=== PATIENT | female | born 1955 | race Two or more races ===

== ENCOUNTER 2017-12-23 17:34 | Inpatient (IN) | payer OTHER ==
[~2017-12-23] VITALS: Ht 152.4 cm; Wt 111.4 kg
[~2017-12-23 17:34] MED LIST: ASPI-621 PO; ATEN25TA PO; CARI350T PO; CITA40TA5 PO; HYDR-3241 PO; HYDR-3343 PO; LISI-170 PO; LISI2.5T PO; MECL25TA2 PO; METO-99 PO; SIMV40TA PO; TEMA22.5 PO; TEMA30CA6 PO; TRAM50TA2 PO
[2017-12-23] MEDS ORDERED: SODIUM CHLORIDE FLUSH 10ML SYR IVF ONE (18:30)
[2017-12-23] MEDS ORDERED: ASPIRIN 81 MG TABLET CHEW PO ONE (18:30)
[2017-12-23 18:52] LABS: INTERNATIONAL NORMALIZED RATIO 1.04 (0.93-1.1); PROTHROMBIN TIME 10.7 Seconds (9.6-11.5)
[2017-12-23 18:59] LABS: ALANINE AMINOTRANSFERASE 13 U/L (12-78); ALBUMIN 3.3 g/dL (3.4-5.0); ANION GAP 13 mmol/L (5-15); CALCIUM 8.6 mg/dL (8.5-10.1); CHLORIDE 101 mmol/L (98-107)
[2017-12-23 19:04] LABS: ALKALINE PHOSPHATASE 56 U/L (45-117); BILIRUBIN,TOTAL 0.2 mg/dL (0.2-1.0); CREATININE 1.55 mg/dL (0.55-1.02); TOTAL PROTEIN 7.7 g/dL (6.4-8.2); TROPONIN I 0.117 ng/mL (0.000-0.045)
[2017-12-23 19:16] LABS: MEAN CORPUSCULAR HEMOGLOBIN 27.5 pg (27.0-34.8); MEAN CORPUSCULAR HGB CONC 32.8 g/dL (32.4-35.8); MEAN CORPUSCULAR VOLUME 83.8 fL (80-100); MEAN PLATELET VOLUME 7.9 fL (7.4-10.4); PLATELET COUNT 469 x10^3/uL (130-400); RED CELL DISTRIBUTION WIDTH 17.1 % (9.6-15.2)
[2017-12-23 19:17] LABS: HEMOGRAM NOTE RECHECKED
[2017-12-23 19:29] LABS: MD YES
[2017-12-23] MEDS ORDERED: POTASSIUM CHLORIDE 20 MEQ TAB.ER.PRT PO ONE (19:30)
[2017-12-23] MEDS ORDERED: POTASSIUM CHLORIDE 40 MEQ in SODIUM CHLORIDE 0.9% 500 ML IV ONE (19:30)
[2017-12-23 19:33] LABS: LYMPH#(MANUAL) 2.32 x10^3/uL (1-3.4); LYMPHS% (MANUAL) 18 % (22-44); MONOS#(MANUAL) 1.03 x10^3/uL (0.3-2.7); MONOS% (MANUAL) 8 % (2-9); NRBC % (MANUAL) 1 % (0-1); SEG#(MANUAL) 9.55 x10^3/uL (1.8-6.8); SEGS% (MANUAL) 74 % (42-75)
[2017-12-23 19:34] LABS: ANISOCYTOSIS 2+; HYPOCHROMIA 1+; MICROCYTOSIS 1+; POLYCHROMASIA 1+
[2017-12-23 19:35] LABS: <PLATELET ESTIMATE> INCREASED; <PLT MORPHOLOGY> NORMAL PLT MORPH
[2017-12-23] MEDS ORDERED: POTASSIUM CHLORIDE 20 MEQ TAB.ER.PRT ONE (20:09)
[2017-12-23] MEDS ORDERED: ASPIRIN 81 MG TABLET CHEW ONE (20:09)
[2017-12-23] MEDS ORDERED: NITROGLYCERIN OINT 2%, 1GM TP ONE ×2 (20:12→20:30)
[2017-12-23] MEDS ORDERED: HEPARIN 5,000 UNITS/ML, 1ML IV ONE (20:30)
[2017-12-23] MEDS ORDERED: HEPARIN 5,000 UNITS/ML, 1ML IV PRN (20:30)
[2017-12-23] MEDS ORDERED: HEPARIN 25,000 UNITS/500ML PMX 500 ML IV PRN (20:30)
[2017-12-23] MEDS ORDERED: HYDR-3245 PO (20:46)
[2017-12-23] MEDS ORDERED: MECLIZINE CHEWABLE 25 MG TAB PO PRN (21:30)
[2017-12-23] MEDS ORDERED: ONDANSETRON 2MG/ML, 2ML IVPush PRN (21:30)
[2017-12-23] MEDS ORDERED: ONDANSETRON ODT 4 MG PO PRN (21:30)
[2017-12-23] MEDS ORDERED: hydrALAzine 20 MG/ML, 1ML IVPush PRN (21:30)
[2017-12-23] MEDS ORDERED: ACETAMINOPHEN 325 MG TABLET PO PRN (21:30)
[2017-12-23 21:37] VITALS: BP 128/72
[2017-12-23] MEDS: HYDROcodone/APAP 10/325 MG TABLET PO PRN (21:46)
[2017-12-23 22:07] VITALS: BP 128/78
[2017-12-23 22:38] VITALS: BP 123/69
[2017-12-23 23:21] VITALS: BP 122/72
[2017-12-23 23:38] LABS: TROPONIN I 0.608 ng/mL (0.000-0.045)
[2017-12-24] VITALS (9 sets, daily range): BP systolic 125–156; BP diastolic 72–89
[2017-12-24] MEDS ORDERED: MORPHINE SULFATE 4 MG/ML, 1ML ONE ×4 (00:20→09:40)
[2017-12-24] MEDS: morphine SULFATE 10 MG/ML, 1ML IVPush PRN ×5 (00:25→13:10)
[2017-12-24] MEDS: SODIUM CHLORIDE 0.9% 1,000 ML IV SCH ×2 (01:34→10:02)
[2017-12-24 05:43] LABS: MEAN CORPUSCULAR HEMOGLOBIN 28.6 pg (27.0-34.8); MEAN CORPUSCULAR HGB CONC 33.1 g/dL (32.4-35.8); MEAN CORPUSCULAR VOLUME 86.7 fL (80-100); MEAN PLATELET VOLUME 7.7 fL (7.4-10.4); PLATELET COUNT 389 x10^3/uL (130-400); RED CELL DISTRIBUTION WIDTH 16.1 % (9.6-15.2)
[2017-12-24 05:48] LABS: ALBUMIN 3.1 g/dL (3.4-5.0); CHLORIDE 106 mmol/L (98-107)
[2017-12-24 05:54] LABS: ALANINE AMINOTRANSFERASE 12 U/L (12-78); ALKALINE PHOSPHATASE 53 U/L (45-117); ANION GAP 11 mmol/L (5-15); BILIRUBIN,TOTAL 0.7 mg/dL (0.2-1.0); CHOL/HDL RATIO 3.1; CHOLESTEROL, TOTAL 141 mg/dL (140-239); CREATININE 0.87 mg/dL (0.55-1.02); HDL CHOL % 33 % (28-40); HDL CHOLESTEROL (DIRECT) 46 mg/dL (40-60); LDL CHOLESTEROL,CALCULATED 78 mg/dL (54-169); LDL/HDL RATIO 1.7 (0.5-3.0); TOTAL PROTEIN 7.4 g/dL (6.4-8.2); TRIGLYCERIDES 83 mg/dL (50-200); TROPONIN I 0.533 ng/mL (0.000-0.045); VLDL CHOLESTEROL 17 mg/dL (0-25)
[2017-12-24 05:58] LABS: BASOPHILS # (AUTO) 0.03 x10^3/uL (0-0.1); BASOPHILS % (AUTO) 0 % (0-1); EOSINOPHILS % (AUTO) 0 % (1-7); LYMPHOCYTES # (AUTO) 1.83 x10^3/uL (1-3.4); LYMPHOCYTES % (AUTO) 17 % (22-44); MD SCAN; MONOCYTES # (AUTO) 0.84 x10^3/uL (0.2-0.8); MONOCYTES % (AUTO) 8 % (2-9); NEUTROPHILS # (AUTO) 7.89 x10^3/uL (1.8-6.8); NEUTROPHILS % (AUTO) 75 % (42-75)
[2017-12-24] MEDS: CITALOPRAM 20 MG TABLET PO SCH (07:35)
[2017-12-24] MEDS: HYDROcodone/APAP 10/325 MG TABLET PO PRN ×3 (07:35→22:03)
[2017-12-24] MEDS: POLYETHYLENE GLYCOL 17 GM PACKET PO SCH (07:36)
[2017-12-24] MEDS ORDERED: PNEUMOCOCCAL 23 VACCINE IM-VACC ONE (10:30)
[2017-12-24] MEDS ORDERED: TRAM50TA2 PO (12:35)
[2017-12-24] MEDS ORDERED: TIZA4TAB PO (16:23)
[2017-12-24] MEDS ORDERED: POTASSIUM CHLORIDE 20 MEQ TAB.ER.PRT ONE (17:41)
[2017-12-24] MEDS: POTASSIUM CHLORIDE 20 MEQ TAB.ER.PRT PO SCH (17:46)
[2017-12-24] MEDS ORDERED: TIZANIDINE 4MG TABLET PO PRN (18:00)
[2017-12-24] MEDS: LISINOPRIL 20 MG TABLET PO SCH (22:03)
[2017-12-24] MEDS: SIMVASTATIN 40 MG TABLET PO SCH (22:04)
[2017-12-25] VITALS (9 sets, daily range): BP systolic 123–166; BP diastolic 79–98
[2017-12-25] MEDS: TEMAZEPAM 15 MG CAPSULE PO PRN ×2 (00:03→21:17)
[2017-12-25] MEDS: HYDROcodone/APAP 10/325 MG TABLET PO PRN ×3 (05:22→18:13)
[2017-12-25 05:44] LABS: BASOPHILS # (AUTO) 0.04 x10^3/uL (0-0.1); BASOPHILS % (AUTO) 0 % (0-1); EOSINOPHILS # (AUTO) 0.02 x10^3/uL (0-0.4); EOSINOPHILS % (AUTO) 0 % (1-7); LYMPHOCYTES # (AUTO) 1.86 x10^3/uL (1-3.4); LYMPHOCYTES % (AUTO) 17 % (22-44); MD NO; MEAN CORPUSCULAR HEMOGLOBIN 28.5 pg (27.0-34.8); MEAN CORPUSCULAR VOLUME 86.2 fL (80-100); MEAN PLATELET VOLUME 7.7 fL (7.4-10.4); MONOCYTES # (AUTO) 1.03 x10^3/uL (0.2-0.8); MONOCYTES % (AUTO) 10 % (2-9); NEUTROPHILS # (AUTO) 7.96 x10^3/uL (1.8-6.8); NEUTROPHILS % (AUTO) 73 % (42-75); PLATELET COUNT 359 x10^3/uL (130-400); RED BLOOD COUNT 2.58 x10^6/uL (3.82-5.3); RED CELL DISTRIBUTION WIDTH 17.3 % (9.6-15.2)
[2017-12-25 05:56] LABS: ANION GAP 6 mmol/L (5-15); CALCIUM 8.4 mg/dL (8.5-10.1); CHLORIDE 107 mmol/L (98-107)
[2017-12-25 06:04] LABS: CREATININE 0.66 mg/dL (0.55-1.02); TROPONIN I 0.178 ng/mL (0.000-0.045)
[2017-12-25] MEDS: POLYETHYLENE GLYCOL 17 GM PACKET PO SCH (08:24)
[2017-12-25] MEDS: CITALOPRAM 20 MG TABLET PO SCH (08:25)
[2017-12-25] MEDS: POTASSIUM CHLORIDE 20 MEQ TAB.ER.PRT PO SCH (08:25)
[2017-12-25] MEDS: LISINOPRIL 20 MG TABLET PO SCH ×2 (08:25→21:12)
[2017-12-25 10:33] LABS: OCCULT BLOOD POSITIVE (NEGATIVE)
[2017-12-25] MEDS ORDERED: SENNA/DOCUSATE TABLET PO SCH (14:00)
[2017-12-25] MEDS: SIMVASTATIN 40 MG TABLET PO SCH (21:11)
[2017-12-25] MEDS: SENNA/DOCUSATE TABLET PO SCH (21:11)
[2017-12-26] MEDS: HYDROcodone/APAP 10/325 MG TABLET PO PRN ×4 (00:49→20:20)
[2017-12-26 00:51] VITALS: BP 152/81
[2017-12-26 05:24] LABS: BASOPHILS # (AUTO) 0.04 x10^3/uL (0-0.1); BASOPHILS % (AUTO) 0 % (0-1); EOSINOPHILS # (AUTO) 0.13 x10^3/uL (0-0.4); EOSINOPHILS % (AUTO) 1 % (1-7); LYMPHOCYTES # (AUTO) 2.65 x10^3/uL (1-3.4); LYMPHOCYTES % (AUTO) 24 % (22-44); MD NO; MEAN CORPUSCULAR HEMOGLOBIN 29.5 pg (27.0-34.8); MEAN CORPUSCULAR HGB CONC 33.4 g/dL (32.4-35.8); MEAN CORPUSCULAR VOLUME 88.3 fL (80-100); MEAN PLATELET VOLUME 7.9 fL (7.4-10.4); MONOCYTES # (AUTO) 0.98 x10^3/uL (0.2-0.8); MONOCYTES % (AUTO) 9 % (2-9); NEUTROPHILS # (AUTO) 7.45 x10^3/uL (1.8-6.8); NEUTROPHILS % (AUTO) 66 % (42-75); PLATELET COUNT 334 x10^3/uL (130-400); RED BLOOD COUNT 3.07 x10^6/uL (3.82-5.3); RED CELL DISTRIBUTION WIDTH 17.1 % (9.6-15.2)
[2017-12-26 06:24] VITALS: BP 135/84
[2017-12-26] MEDS: SENNA/DOCUSATE TABLET PO SCH ×2 (08:36→20:20)
[2017-12-26] MEDS: LISINOPRIL 20 MG TABLET PO SCH ×2 (08:36→20:20)
[2017-12-26] MEDS: CITALOPRAM 20 MG TABLET PO SCH (08:36)
[2017-12-26] MEDS: POLYETHYLENE GLYCOL 17 GM PACKET PO SCH (08:36)
[2017-12-26] MEDS ORDERED: SENNA/DOCUSATE TABLET PO SCH (09:00)
[2017-12-26 12:26] VITALS: BP 146/84
[2017-12-26] MEDS ORDERED: MOVIPREP POWDER 1 PREP KIT PO ONE (18:00)
[2017-12-26 19:41] VITALS: BP 120/65
[2017-12-26] MEDS: SIMVASTATIN 40 MG TABLET PO SCH (20:20)
[2017-12-27] VITALS (10 sets, daily range): BP systolic 116–152; BP diastolic 74–91
[2017-12-27] MEDS ORDERED: MOVIPREP POWDER 1 PREP KIT PO ONE (03:00)
[2017-12-27] MEDS: HYDROcodone/APAP 10/325 MG TABLET PO PRN ×4 (03:10→22:23)
[2017-12-27 05:35] LABS: ANION GAP 8 mmol/L (5-15); CALCIUM 8.7 mg/dL (8.5-10.1); CHLORIDE 109 mmol/L (98-107); CREATININE 0.58 mg/dL (0.55-1.02)
[2017-12-27 06:00] LABS: BASOPHILS # (AUTO) 0.02 x10^3/uL (0-0.1); BASOPHILS % (AUTO) 0 % (0-1); EOSINOPHILS # (AUTO) 0.07 x10^3/uL (0-0.4); EOSINOPHILS % (AUTO) 1 % (1-7); LYMPHOCYTES # (AUTO) 1.31 x10^3/uL (1-3.4); LYMPHOCYTES % (AUTO) 15 % (22-44); MD NO; MEAN CORPUSCULAR HEMOGLOBIN 28.9 pg (27.0-34.8); MEAN CORPUSCULAR VOLUME 87.8 fL (80-100); MEAN PLATELET VOLUME 7.8 fL (7.4-10.4); MONOCYTES # (AUTO) 0.74 x10^3/uL (0.2-0.8); MONOCYTES % (AUTO) 8 % (2-9); NEUTROPHILS # (AUTO) 6.67 x10^3/uL (1.8-6.8); NEUTROPHILS % (AUTO) 76 % (42-75); PLATELET COUNT 339 x10^3/uL (130-400); RED BLOOD COUNT 3.15 x10^6/uL (3.82-5.3); RED CELL DISTRIBUTION WIDTH 16.6 % (9.6-15.2)
[2017-12-27] MEDS: SENNA/DOCUSATE TABLET PO SCH ×2 (08:03→20:20)
[2017-12-27] MEDS: LISINOPRIL 20 MG TABLET PO SCH ×3 (08:03→15:11)
[2017-12-27] MEDS ORDERED: PROPOFOL 10 MG/ML, 20ML ONE ×3 (09:15→09:40)
[2017-12-27] MEDS ORDERED: PROMETHAZINE 25 MG/ML, 1ML IV PRN (10:00)
[2017-12-27] MEDS ORDERED: PROMETHAZINE 12.5 MG SUPP PR PRN (10:00)
[2017-12-27] MEDS ORDERED: ONDANSETRON 2MG/ML, 2ML IVPush PRN (10:00)
[2017-12-27] MEDS ORDERED: OXYcodone 5 MG/5 ML ORAL.SOL UDC PO PRN (10:00)
[2017-12-27] MEDS ORDERED: MIDAZOLAM 1 MG/ML, 2ML IV PRN (10:00)
[2017-12-27] MEDS ORDERED: FENTANYL PF 100 MCG/2ML IV PRN (10:00)
[2017-12-27] MEDS ORDERED: LORazepam 2 MG/ML, 1ML IVPush PRN (10:00)
[2017-12-27] MEDS ORDERED: morphine SULFATE 10 MG/ML, 1ML IV PRN (10:00)
[2017-12-27] MEDS: CITALOPRAM 20 MG TABLET PO SCH (10:41)
[2017-12-27] MEDS: POLYETHYLENE GLYCOL 17 GM PACKET PO SCH (20:20)
[2017-12-27] MEDS: SIMVASTATIN 40 MG TABLET PO SCH (20:29)
[2017-12-27] MEDS: TEMAZEPAM 15 MG CAPSULE PO PRN (22:23)
[2017-12-28 01:08] VITALS: BP 130/78
[2017-12-28] MEDS: HYDROcodone/APAP 10/325 MG TABLET PO PRN ×2 (05:33→11:22)
[2017-12-28 05:41] LABS: BASOPHILS # (AUTO) 0.03 x10^3/uL (0-0.1); BASOPHILS % (AUTO) 0 % (0-1); EOSINOPHILS # (AUTO) 0.13 x10^3/uL (0-0.4); EOSINOPHILS % (AUTO) 2 % (1-7); LYMPHOCYTES # (AUTO) 1.68 x10^3/uL (1-3.4); LYMPHOCYTES % (AUTO) 20 % (22-44); MD NO; MEAN CORPUSCULAR HEMOGLOBIN 28.7 pg (27.0-34.8); MEAN CORPUSCULAR VOLUME 86.9 fL (80-100); MEAN PLATELET VOLUME 7.6 fL (7.4-10.4); MONOCYTES # (AUTO) 0.72 x10^3/uL (0.2-0.8); MONOCYTES % (AUTO) 9 % (2-9); NEUTROPHILS # (AUTO) 5.68 x10^3/uL (1.8-6.8); NEUTROPHILS % (AUTO) 69 % (42-75); PLATELET COUNT 343 x10^3/uL (130-400); RED BLOOD COUNT 2.99 x10^6/uL (3.82-5.3); RED CELL DISTRIBUTION WIDTH 17.4 % (9.6-15.2)
[2017-12-28 06:28] VITALS: BP 137/79
[2017-12-28] MEDS: SENNA/DOCUSATE TABLET PO SCH (08:28)
[2017-12-28] MEDS: POLYETHYLENE GLYCOL 17 GM PACKET PO SCH (08:28)
[2017-12-28] MEDS: CITALOPRAM 20 MG TABLET PO SCH (08:37)
[2017-12-28] MEDS: LISINOPRIL 20 MG TABLET PO SCH (08:37)
[2017-12-28 12:19] LABS: BASOPHILS # (AUTO) 0.04 x10^3/uL (0-0.1); BASOPHILS % (AUTO) 1 % (0-1); EOSINOPHILS # (AUTO) 0.08 x10^3/uL (0-0.4); EOSINOPHILS % (AUTO) 1 % (1-7); LYMPHOCYTES # (AUTO) 1.11 x10^3/uL (1-3.4); LYMPHOCYTES % (AUTO) 16 % (22-44); MD NO; MEAN CORPUSCULAR HGB CONC 32.3 g/dL (32.4-35.8); MEAN CORPUSCULAR VOLUME 86.8 fL (80-100); MEAN PLATELET VOLUME 7.7 fL (7.4-10.4); MONOCYTES # (AUTO) 0.57 x10^3/uL (0.2-0.8); MONOCYTES % (AUTO) 8 % (2-9); NEUTROPHILS # (AUTO) 5.07 x10^3/uL (1.8-6.8); NEUTROPHILS % (AUTO) 74 % (42-75); PLATELET COUNT 331 x10^3/uL (130-400); RED BLOOD COUNT 3.15 x10^6/uL (3.82-5.3)
[2017-12-28 13:56] VITALS: BP 125/80
== END 2017-12-28 16:51 | disposition home or self-care (01) | DRG 393 ==
LOC: ED 20:41 → EDIP 21:01 → 5SO 21:20
PROVIDERS: ADMIT Hospitalist; ATTEND Family Medicine
PROC: 30233N1 Transfusion of Nonautologous Red Blood Cells into Peripheral Vein, Percutaneous Approach (ICD-10-PCS; principal; 2017-12-23)
PROC: 0DBN8ZX Excision of Sigmoid Colon, Via Natural or Artificial Opening Endoscopic, Diagnostic (ICD-10-PCS; 2017-12-27)
PROC: 0DB98ZX Excision of Duodenum, Via Natural or Artificial Opening Endoscopic, Diagnostic (ICD-10-PCS; 2017-12-27)
DX: K63.5 Polyp of colon (principal); N17.0 Acute kidney failure with tubular necrosis; I24.8 Other forms of acute ischemic heart disease; D62 Acute posthemorrhagic anemia; Z68.42 Body mass index [BMI] 45.0-49.9, adult; I35.0 Nonrheumatic aortic (valve) stenosis; E66.9 Obesity, unspecified; E78.5 Hyperlipidemia, unspecified; I10 Essential (primary) hypertension; I35.2 Nonrheumatic aortic (valve) stenosis with insufficiency; K59.00 Constipation, unspecified; E87.6 Hypokalemia; D50.9 Iron deficiency anemia, unspecified; M54.9 Dorsalgia, unspecified; G89.29 Other chronic pain; F41.9 Anxiety disorder, unspecified; F32.9 Major depressive disorder, single episode, unspecified; K57.90 Diverticulosis of intestine, part unspecified, without perforation or abscess without bleeding; R19.5 Other fecal abnormalities; Z90.49 Acquired absence of other specified parts of digestive tract; Z88.2 Allergy status to sulfonamides; Z87.891 Personal history of nicotine dependence
CPT/HCPCS: 36415; 36430; 71045; 80048; 80053; 80061; 82272; 83735; 84100; 84484; 85014; 85018; 85025; 85520; 85610; 86850; 86900; 86923; 88305; 90732; 93005; 93306; J2704; J2270; J7030; P9016

== ENCOUNTER → 2018-04-08 | Outpatient (CLI) | payer OTHER ==
[~2018-04-08] MED LIST changes: +HYDR-3245 PO; +TIZA4TAB PO
== END | disposition home or self-care (01) ==
LOC: CFH 09:17
PROVIDERS: ATTEND Physician Assistant
DX: I08.3 Combined rheumatic disorders of mitral, aortic and tricuspid valves (principal); I10 Essential (primary) hypertension; E78.5 Hyperlipidemia, unspecified; F41.9 Anxiety disorder, unspecified
CPT/HCPCS: 93306

== ENCOUNTER 2018-06-03 08:12 | Day surgery (SDC) | payer OTHER ==
[2018-06-01 11:34] LABS: ALANINE AMINOTRANSFERASE 16 U/L (12-78); ALBUMIN 3.5 g/dL (3.4-5.0); ANION GAP 7 mmol/L (5-15); CALCIUM 9.2 mg/dL (8.5-10.1); CHLORIDE 105 mmol/L (98-107); CREATININE 0.75 mg/dL (0.55-1.02)
[2018-06-01 11:36] LABS: ALKALINE PHOSPHATASE 81 U/L (45-117); BILIRUBIN,TOTAL 0.3 mg/dL (0.2-1.0); TOTAL PROTEIN 8.5 g/dL (6.4-8.2)
[~2018-06-03] VITALS: Ht 154.9 cm; Wt 110.9 kg
[~2018-06-03 08:12] MED LIST changes: +CHOL100011 PO; +FERR-46 PO; +FURO20TA3 PO; +HYDR-3307 PO; +LISI1TAB5 PO; +TIZA4CAP PO; +TRAZ-137 PO
[2018-06-03 08:27] VITALS: BP 165/71
[2018-06-03] MEDS ORDERED: VERAPAMIL 2.5 MG/ML, 2ML ONE (09:17)
[2018-06-03] MEDS ORDERED: MIDAZOLAM 1 MG/ML, 2ML ONE (09:17)
[2018-06-03] MEDS ORDERED: FENTANYL PF 100 MCG/2ML ONE (09:17)
[2018-06-03] MEDS ORDERED: HEPARIN 1,000 UNITS/ML, 10ML ONE (09:18)
[2018-06-03] MEDS ORDERED: HYDROcodone/APAP 5/325 TABLET PO PRN (10:00)
== END 2018-06-03 12:01 | disposition home or self-care (01) ==
LOC: CACL 08:12
PROVIDERS: ATTEND Internal Medicine Cardiovascular Disease
DX: I25.10 Atherosclerotic heart disease of native coronary artery without angina pectoris (principal); I10 Essential (primary) hypertension; D64.9 Anemia, unspecified; Z79.899 Other long term (current) drug therapy; Z88.1 Allergy status to other antibiotic agents; Z88.8 Allergy status to other drugs, medicaments and biological substances
CPT/HCPCS: 36415; 80053; 93458; 99156; C1769; C1894; J1644; J2250; J3010; Q9967

== ENCOUNTER 2018-07-02 04:52 | Inpatient (IN) | payer OTHER ==
[2018-07-01 13:01] LABS: MICROSCOPIC AUTO
[2018-07-01 13:13] LABS: BASOPHILS # (AUTO) 0.03 x10^3/uL (0-0.1); BASOPHILS % (AUTO) 0 % (0-1); EOSINOPHILS # (AUTO) 0.17 x10^3/uL (0-0.4); EOSINOPHILS % (AUTO) 2 % (1-7); LYMPHOCYTES # (AUTO) 1.71 x10^3/uL (1-3.4); LYMPHOCYTES % (AUTO) 16 % (22-44); MD NO; MEAN CORPUSCULAR HEMOGLOBIN 28.1 pg (27.0-34.8); MEAN CORPUSCULAR VOLUME 85.2 fL (80-100); MEAN PLATELET VOLUME 8.1 fL (7.4-10.4); MONOCYTES # (AUTO) 0.44 x10^3/uL (0.2-0.8); MONOCYTES % (AUTO) 4 % (2-9); NEUTROPHILS % (AUTO) 78 % (42-75); PLATELET COUNT 293 x10^3/uL (130-400); RED BLOOD COUNT 4.36 x10^6/uL (3.82-5.3); RED CELL DISTRIBUTION WIDTH 19.1 % (9.6-15.2)
[2018-07-01 13:20] LABS: INTERNATIONAL NORMALIZED RATIO 1.01 (0.93-1.1); PROTHROMBIN TIME 10.4 Seconds (9.6-11.5)
[2018-07-01 13:22] LABS: ALANINE AMINOTRANSFERASE 31 U/L (12-78); ALBUMIN 3.4 g/dL (3.4-5.0); ANION GAP 4 mmol/L (5-15); CALCIUM 8.6 mg/dL (8.5-10.1); CHLORIDE 105 mmol/L (98-107); CREATININE 0.74 mg/dL (0.55-1.02)
[2018-07-01 13:24] LABS: ALKALINE PHOSPHATASE 114 U/L (45-117); BILIRUBIN,TOTAL 0.2 mg/dL (0.2-1.0); TOTAL PROTEIN 8.4 g/dL (6.4-8.2)
[2018-07-01 13:29] LABS: HEMOGLOBIN A1C 6.1 % (4.2-6.3)
[~2018-07-02] VITALS: Ht 154.9 cm; Wt 117.0 kg
[2018-07-02 05:00] VITALS: BP_SYST 143; BP_SYST 158; BP_DIAS 83; BP_DIAS 93
[2018-07-02] MEDS ORDERED: INSULIN LISPRO 100 UNITS/ML, PEN SQ-INSULIN SCH (05:30)
[2018-07-02] MEDS ORDERED: CHLORHEXIDINE 15 ML UDC MM PRN (05:30)
[2018-07-02] MEDS: MUPIROCIN OINT 2%, 22GM TP SCH ×2 (06:01→20:01)
[2018-07-02] MEDS ORDERED: MIDAZOLAM 10MG/2 ML ONE (07:06)
[2018-07-02] MEDS ORDERED: FENTANYL PF 250 MCG/5ML ONE ×4 (07:08→09:54)
[2018-07-02] MEDS ORDERED: THROMBIN 5,000 UNIT VIAL TP ONE ×2 (07:11→08:30)
[2018-07-02] MEDS ORDERED: VANCOMYCIN 1,600 MG in SODIUM CHLORIDE 0.9% 250 ML IV PRN (07:30)
[2018-07-02] MEDS ORDERED: DEXMEDETOMIDINE 200 MCG in SODIUM CHLORIDE 0.9% 48 ML IV SCH (07:30)
[2018-07-02] MEDS ORDERED: MANNITOL PMX 20% 500 ML IVPB PRN (07:30)
[2018-07-02] MEDS ORDERED: REGULAR INSULIN 62.5 UNITS in SODIUM CHLORIDE 0.9% 249.375 ML IV PRN ×2 (07:30→10:24)
[2018-07-02] MEDS ORDERED: EPINEPHRINE 2 MG in SODIUM CHLORIDE 0.9% 248 ML IV SCH (07:30)
[2018-07-02] MEDS ORDERED: ALBUMIN HUMAN 5% 500 ML IV PRN (07:30)
[2018-07-02] MEDS ORDERED: CEFUROXIME 1.5 GM in SODIUM CHLORIDE 0.9% 50 ML IVPB PRN (07:30)
[2018-07-02] MEDS ORDERED: PHENYLEPHRINE 10 MG in SODIUM CHLORIDE 0.9% 249 ML IV PRN ×2 (07:30→10:24)
[2018-07-02] MEDS ORDERED: POTASSIUM CHLORIDE 80 MEQ, SODIUM BICARBONATE 8.4% 10 MEQ, MAGNESIUM SULFATE 0.5 GM, LI... IV PRN (07:30)
[2018-07-02] MEDS: SODIUM CHLORIDE FLUSH 10ML SYR IVF SCH ×3 (09:00→19:29)
[2018-07-02] MEDS ORDERED: PROTAMINE SULFATE 10 MG/ML, 25ML ONE ×2 (09:04)
[2018-07-02] MEDS ORDERED: AMINOCAPROIC ACID 250 MG/ML, 20ML ONE ×2 (09:04)
[2018-07-02] MEDS ORDERED: PROPOFOL 10 MG/ML, 20ML ONE (09:04)
[2018-07-02] MEDS ORDERED: ROCURONIUM 10MG/ML,5ML ONE ×2 (09:04)
[2018-07-02] MEDS ORDERED: DEXMEDETOMIDINE 200 MCG in SODIUM CHLORIDE 0.9% 48 ML IV PRN (10:24)
[2018-07-02] MEDS ORDERED: VASOPRESSIN 50 UNIT in SODIUM CHLORIDE 0.9% 247.5 ML IV PRN (10:24)
[2018-07-02] MEDS ORDERED: DOBUTAMINE 250 MG in SODIUM CHLORIDE 0.9% 230 ML IV PRN (10:24)
[2018-07-02] MEDS ORDERED: SODIUM CHLORIDE 0.9% 1,000 ML IV PRN (10:24)
[2018-07-02] MEDS ORDERED: NITROGLYCERIN/D5W PMX 250 ML IV PRN (10:24)
[2018-07-02] MEDS ORDERED: HEPARIN 1,000 UNITS/ML, 30ML ONE (10:28)
[2018-07-02] MEDS ORDERED: LIDOCAINE 2% 100MG/5ML SYRINGE ONE (10:28)
[2018-07-02] MEDS ORDERED: ALBUMIN HUMAN 25% 50 ML ONE (10:28)
[2018-07-02] MEDS ORDERED: SODIUM BICARBONATE 1 MEQ/ML, 50ML VIAL ONE (10:28)
[2018-07-02] MEDS ORDERED: SODIUM BICARB 8.4%, 50ML SYRINGE IV PRN (10:30)
[2018-07-02] MEDS: KSCALE TO 4.5 IV SCH ×2 (10:30→19:28)
[2018-07-02] MEDS ORDERED: ACETAMINOPHEN 650 MG SUPP PR PRN (10:30)
[2018-07-02] MEDS ORDERED: PROCHLORPERAZINE 5 MG/ML, 2ML IVPush PRN (10:30)
[2018-07-02] MEDS ORDERED: HYDROcodone/APAP 5/325 TABLET PO PRN (10:30)
[2018-07-02] MEDS ORDERED: EPINEPHRINE 2 MG in SODIUM CHLORIDE 0.9% 248 ML IV PRN (10:30)
[2018-07-02] MEDS ORDERED: MIDAZOLAM 1 MG/ML, 5ML IVPush PRN (10:30)
[2018-07-02] MEDS ORDERED: DEXTROSE 50%, 50ML SYRINGE IVPush PRN (10:30)
[2018-07-02] MEDS ORDERED: BISACODYL 5 MG EC TABLET PO PRN (10:30)
[2018-07-02] MEDS ORDERED: GLUCAGON 1 MG IM PRN (10:30)
[2018-07-02] MEDS ORDERED: INSULIN REGULAR 100 UNITS/ML, 3ML VIAL IVPush PRN (10:30)
[2018-07-02] MEDS ORDERED: BISACODYL 10 MG SUPP PR PRN (10:30)
[2018-07-02] MEDS ORDERED: DEXTROSE 4 GM TAB.CHEW PO PRN (10:30)
[2018-07-02] MEDS ORDERED: LACTATED RINGERS 1,000 ML IV PRN (10:30)
[2018-07-02] MEDS: INSULIN LISPRO 100 UNITS/ML, PEN SQ-INSULIN SCH ×3 (11:00→20:00)
[2018-07-02] MEDS: SUCRALFATE 1 GM TABLET PO SCH ×3 (11:00→20:00)
[2018-07-02] MEDS: DOCUSATE 100 MG CAPSULE PO SCH ×2 (11:02→20:00)
[2018-07-02] MEDS ORDERED: MORPHINE SULFATE 4 MG/ML, 1ML ONE ×2 (11:10→15:39)
[2018-07-02] MEDS: morphine SULFATE 10 MG/ML, 1ML IVPush PRN ×6 (11:13→20:00)
[2018-07-02] MEDS: MAGNESIUM SULFATE 1 GM in SODIUM CHLORIDE 0.9% 50 ML IVPB SCH (11:48)
[2018-07-02 11:50] LABS: GLUCOSE BY BLOOD GAS ANALYZER 155 mg/dL (70-110); HEMOGLOBIN BY BLOOD GAS ANALYZ 12.1 g/dL (14.0-18.0); POTASSIUM BY BLOOD GAS ANALYZR 3.4 mmol/L (3.6-5.5)
[2018-07-02] MEDS ORDERED: POTASSIUM CHLORIDE 30 MEQ in SODIUM CHLORIDE 0.9% 100 ML IV ONE (12:30)
[2018-07-02] MEDS: OXYcodone IR 5MG TABLET PO PRN ×3 (14:47→23:35)
[2018-07-02] MEDS: ONDANSETRON 2MG/ML, 2ML IVPush PRN (15:52)
[2018-07-02] MEDS ORDERED: FENTANYL PF 100 MCG/2ML ONE (17:37)
[2018-07-02] MEDS ORDERED: FENTANYL PF 100 MCG/2ML IVPush ONE (17:45)
[2018-07-02] MEDS ORDERED: AMLODIPINE 5 MG TABLET PO ONE (19:00)
[2018-07-02] MEDS ORDERED: POTASSIUM CHLORIDE PMX 100 ML IV ONE (19:00)
[2018-07-02] MEDS: CHLORHEXIDINE 15 ML UDC PO SCH (19:29)
[2018-07-02] MEDS: ACETAMINOPHEN 325 MG TABLET PO PRN ×2 (19:30→23:35)
[2018-07-02] MEDS: MUPIROCIN OINT 2%, 22GM NAS SCH (19:32)
[2018-07-02] MEDS: FAMOTIDINE 20 MG/2 ML IVPush SCH (19:38)
[2018-07-02] MEDS ORDERED: VANCOMYCIN 1,600 MG in SODIUM CHLORIDE 0.9% 250 ML IVPB SCH (20:00)
[2018-07-02] MEDS: VANCOMYCIN 1,600 MG in SODIUM CHLORIDE 0.9% 250 ML IVPB SCH (20:03)
[2018-07-02] MEDS: HYDROcodone/APAP 10/325 MG TABLET PO PRN (21:27)
[2018-07-02] MEDS ORDERED: LISINOPRIL 10 MG TABLET PO ONE (21:30)
[2018-07-02] MEDS: hydrALAzine 20 MG/ML, 1ML IV PRN (21:30)
[2018-07-02] MEDS: FENTANYL PF 100 MCG/2ML IVPush PRN (22:18)
[2018-07-03] MEDS ORDERED: POTASSIUM CHLORIDE 30 MEQ in SODIUM CHLORIDE 0.9% 100 ML IV ONE (01:00)
[2018-07-03] MEDS: KSCALE TO 4.5 IV SCH ×2 (01:06→06:00)
[2018-07-03] MEDS: CYCLOBENZAPRINE 10 MG TABLET PO PRN ×2 (01:16→09:34)
[2018-07-03] MEDS: FENTANYL PF 100 MCG/2ML IVPush PRN (01:20)
[2018-07-03] MEDS: HYDROcodone/APAP 10/325 MG TABLET PO PRN ×3 (04:36→15:24)
[2018-07-03] MEDS: ASPIRIN 81 MG TABLET EC PO SCH (05:58)
[2018-07-03] MEDS: morphine SULFATE 10 MG/ML, 1ML IVPush PRN (05:58)
[2018-07-03] MEDS: ONDANSETRON 2MG/ML, 2ML IVPush PRN (05:58)
[2018-07-03 06:49] LABS: INTERNATIONAL NORMALIZED RATIO 1.14 (0.93-1.1); PROTHROMBIN TIME 11.7 Seconds (9.6-11.5)
[2018-07-03 06:50] LABS: ALBUMIN 2.8 g/dL (3.4-5.0); ANION GAP 7 mmol/L (5-15); CALCIUM 7.7 mg/dL (8.5-10.1); CHLORIDE 108 mmol/L (98-107); CREATININE 0.66 mg/dL (0.55-1.02)
[2018-07-03 07:03] LABS: MEAN CORPUSCULAR HEMOGLOBIN 28.8 pg (27.0-34.8); MEAN CORPUSCULAR HGB CONC 33.6 g/dL (32.4-35.8); MEAN CORPUSCULAR VOLUME 85.7 fL (80-100); MEAN PLATELET VOLUME 7.8 fL (7.4-10.4); PLATELET COUNT 220 x10^3/uL (130-400); RED BLOOD COUNT 3.61 x10^6/uL (3.82-5.3)
[2018-07-03 07:19] LABS: BASOPHILS # (AUTO) 0.01 x10^3/uL (0-0.1); BASOPHILS % (AUTO) 0 % (0-1); EOSINOPHILS % (AUTO) 0 % (1-7); LYMPHOCYTES # (AUTO) 1.11 x10^3/uL (1-3.4); LYMPHOCYTES % (AUTO) 6 % (22-44); MD SCAN; MONOCYTES # (AUTO) 1.23 x10^3/uL (0.2-0.8); MONOCYTES % (AUTO) 7 % (2-9); NEUTROPHILS # (AUTO) 16.08 x10^3/uL (1.8-6.8); NEUTROPHILS % (AUTO) 87 % (42-75)
[2018-07-03] MEDS ORDERED: POTASSIUM CHLORIDE PMX 100 ML IV ONE (07:30)
[2018-07-03] MEDS: OXYcodone IR 5MG TABLET PO PRN ×2 (08:09→19:59)
[2018-07-03] MEDS: SUCRALFATE 1 GM TABLET PO SCH ×4 (08:09→19:58)
[2018-07-03] MEDS: INSULIN LISPRO 100 UNITS/ML, PEN SQ-INSULIN SCH ×4 (08:09→20:09)
[2018-07-03] MEDS ORDERED: ASPIRIN 325 MG TABLET EC PO SCH (09:00)
[2018-07-03] MEDS: CLOPIDOGREL 75 MG TABLET PO SCH (09:34)
[2018-07-03] MEDS: DOCUSATE 100 MG CAPSULE PO SCH ×2 (09:34→19:58)
[2018-07-03] MEDS: MUPIROCIN OINT 2%, 22GM NAS SCH ×2 (09:34→20:09)
[2018-07-03] MEDS: VANCOMYCIN 1,600 MG in SODIUM CHLORIDE 0.9% 250 ML IVPB SCH (09:34)
[2018-07-03] MEDS: SODIUM CHLORIDE FLUSH 10ML SYR IVF SCH ×4 (09:34→19:58)
[2018-07-03] MEDS: CHLORHEXIDINE 15 ML UDC PO SCH ×2 (09:34→19:58)
[2018-07-03] MEDS: hydrALAzine 20 MG/ML, 1ML IV PRN (10:19)
[2018-07-03] MEDS ORDERED: KETOROLAC 30 MG/1 ML IM SCH (10:30)
[2018-07-03] MEDS ORDERED: LISINOPRIL 20 MG TABLET PO SCH (10:30)
[2018-07-03] MEDS: FUROSEMIDE 40 MG/4 ML IV SCH (10:59)
[2018-07-03] MEDS: POTASSIUM CHLORIDE 20 MEQ TAB.ER.PRT PO SCH (10:59)
[2018-07-03] MEDS: MAGNESIUM SULFATE 1 GM in SODIUM CHLORIDE 0.9% 50 ML IVPB SCH (13:11)
[2018-07-03] MEDS: KETOROLAC 30 MG/1 ML IVPush SCH ×2 (16:59→22:12)
[2018-07-03] MEDS: FAMOTIDINE 20 MG/2 ML IVPush SCH (19:58)
[2018-07-03] MEDS: TRAZODONE 100MG TABLET PO SCH (19:59)
[2018-07-04] MEDS: CYCLOBENZAPRINE 10 MG TABLET PO PRN ×2 (00:43→12:00)
[2018-07-04] MEDS: hydrALAzine 20 MG/ML, 1ML IV PRN (00:43)
[2018-07-04] MEDS: HYDROcodone/APAP 10/325 MG TABLET PO PRN ×3 (03:35→18:34)
[2018-07-04] MEDS: KETOROLAC 30 MG/1 ML IVPush SCH ×4 (03:35→22:35)
[2018-07-04 03:55] LABS: BASOPHILS # (AUTO) 0.04 x10^3/uL (0-0.1); BASOPHILS % (AUTO) 0 % (0-1); EOSINOPHILS % (AUTO) 0 % (1-7); LYMPHOCYTES % (AUTO) 6 % (22-44); MD NO; MEAN CORPUSCULAR HGB CONC 33.5 g/dL (32.4-35.8); MEAN CORPUSCULAR VOLUME 86.6 fL (80-100); MEAN PLATELET VOLUME 8.6 fL (7.4-10.4); MONOCYTES # (AUTO) 1.13 x10^3/uL (0.2-0.8); MONOCYTES % (AUTO) 6 % (2-9); NEUTROPHILS % (AUTO) 87 % (42-75); PLATELET COUNT 163 x10^3/uL (130-400); RED BLOOD COUNT 3.22 x10^6/uL (3.82-5.3); RED CELL DISTRIBUTION WIDTH 19.9 % (9.6-15.2)
[2018-07-04 04:04] LABS: ANION GAP 9 mmol/L (5-15); CALCIUM 7.9 mg/dL (8.5-10.1); CHLORIDE 106 mmol/L (98-107); CREATININE 0.69 mg/dL (0.55-1.02); INTERNATIONAL NORMALIZED RATIO 1.13 (0.93-1.1); PROTHROMBIN TIME 11.6 Seconds (9.6-11.5)
[2018-07-04] MEDS: OXYcodone IR 5MG TABLET PO PRN ×2 (05:59→14:17)
[2018-07-04] MEDS: ASPIRIN 81 MG TABLET EC PO SCH (05:59)
[2018-07-04] MEDS ORDERED: MAGNESIUM HYDROXIDE 8%, 30ML UDC PO PRN (08:30)
[2018-07-04] MEDS: SUCRALFATE 1 GM TABLET PO SCH ×4 (09:04→22:35)
[2018-07-04] MEDS: INSULIN LISPRO 100 UNITS/ML, PEN SQ-INSULIN SCH ×4 (09:04→22:38)
[2018-07-04] MEDS: POTASSIUM CHLORIDE 20 MEQ TAB.ER.PRT PO SCH (09:05)
[2018-07-04] MEDS: SODIUM CHLORIDE FLUSH 10ML SYR IVF SCH ×5 (09:05→22:38)
[2018-07-04] MEDS: FUROSEMIDE 40 MG/4 ML IV SCH (09:05)
[2018-07-04] MEDS: CLOPIDOGREL 75 MG TABLET PO SCH (09:06)
[2018-07-04] MEDS: DOCUSATE 100 MG CAPSULE PO SCH ×2 (09:06→22:35)
[2018-07-04] MEDS: CHLORHEXIDINE 15 ML UDC PO SCH (09:06)
[2018-07-04] MEDS: MUPIROCIN OINT 2%, 22GM NAS SCH ×2 (09:06→22:35)
[2018-07-04] MEDS: ENOXAPARIN 40 MG/0.4 ML SQ SCH (09:08)
[2018-07-04] MEDS: LISINOPRIL 10 MG TABLET PO SCH (09:18)
[2018-07-04] MEDS: CITALOPRAM 20 MG TABLET PO SCH (09:19)
[2018-07-04] MEDS: MAGNESIUM SULFATE 1 GM in SODIUM CHLORIDE 0.9% 50 ML IVPB SCH (12:00)
[2018-07-04 13:21] VITALS: BP 128/81
[2018-07-04] MEDS: ONDANSETRON 2MG/ML, 2ML IVPush PRN (14:18)
[2018-07-04 19:51] VITALS: BP 114/72
[2018-07-04] MEDS: FAMOTIDINE 20 MG/2 ML IVPush SCH (22:35)
[2018-07-04] MEDS: TRAZODONE 100MG TABLET PO SCH (22:35)
[2018-07-05 01:50] VITALS: BP 139/80
[2018-07-05] MEDS: HYDROcodone/APAP 10/325 MG TABLET PO PRN ×4 (02:52→18:18)
[2018-07-05] MEDS: KETOROLAC 30 MG/1 ML IVPush SCH ×4 (05:14→22:30)
[2018-07-05] MEDS: ASPIRIN 81 MG TABLET EC PO SCH (05:14)
[2018-07-05 05:32] LABS: ANION GAP 9 mmol/L (5-15); CALCIUM 8.1 mg/dL (8.5-10.1); CHLORIDE 107 mmol/L (98-107)
[2018-07-05 05:33] LABS: CREATININE 0.65 mg/dL (0.55-1.02)
[2018-07-05 05:38] LABS: BASOPHILS # (AUTO) 0.01 x10^3/uL (0-0.1); BASOPHILS % (AUTO) 0 % (0-1); EOSINOPHILS # (AUTO) 0.07 x10^3/uL (0-0.4); EOSINOPHILS % (AUTO) 1 % (1-7); LYMPHOCYTES # (AUTO) 1.47 x10^3/uL (1-3.4); LYMPHOCYTES % (AUTO) 12 % (22-44); MD NO; MEAN CORPUSCULAR HEMOGLOBIN 28.2 pg (27.0-34.8); MEAN CORPUSCULAR HGB CONC 32.6 g/dL (32.4-35.8); MEAN CORPUSCULAR VOLUME 86.4 fL (80-100); MEAN PLATELET VOLUME 8.6 fL (7.4-10.4); MONOCYTES # (AUTO) 0.75 x10^3/uL (0.2-0.8); MONOCYTES % (AUTO) 6 % (2-9); NEUTROPHILS # (AUTO) 10.14 x10^3/uL (1.8-6.8); NEUTROPHILS % (AUTO) 82 % (42-75); PLATELET COUNT 174 x10^3/uL (130-400); RED BLOOD COUNT 3.08 x10^6/uL (3.82-5.3); RED CELL DISTRIBUTION WIDTH 20.3 % (9.6-15.2)
[2018-07-05] MEDS: INSULIN LISPRO 100 UNITS/ML, PEN SQ-INSULIN SCH ×2 (07:00→11:00)
[2018-07-05 07:33] VITALS: BP 130/81
[2018-07-05] MEDS: SUCRALFATE 1 GM TABLET PO SCH ×4 (07:41→20:36)
[2018-07-05] MEDS: ONDANSETRON 2MG/ML, 2ML IVPush PRN (08:07)
[2018-07-05] MEDS: SODIUM CHLORIDE FLUSH 10ML SYR IVF SCH ×6 (09:00→20:36)
[2018-07-05] MEDS: FUROSEMIDE 40 MG/4 ML IV SCH (09:18)
[2018-07-05] MEDS: CITALOPRAM 20 MG TABLET PO SCH (09:18)
[2018-07-05] MEDS: POTASSIUM CHLORIDE 20 MEQ TAB.ER.PRT PO SCH (09:18)
[2018-07-05] MEDS: CLOPIDOGREL 75 MG TABLET PO SCH (09:18)
[2018-07-05] MEDS: ENOXAPARIN 40 MG/0.4 ML SQ SCH (09:19)
[2018-07-05] MEDS: DOCUSATE 100 MG CAPSULE PO SCH ×2 (09:19→20:36)
[2018-07-05] MEDS: LISINOPRIL 10 MG TABLET PO SCH (09:19)
[2018-07-05] MEDS: MUPIROCIN OINT 2%, 22GM NAS SCH ×2 (09:30→20:36)
[2018-07-05] MEDS: METOPROLOL TARTRATE 25 MG TABLET PO SCH ×2 (09:30→18:06)
[2018-07-05] MEDS: OXYcodone IR 5MG TABLET PO PRN ×2 (13:18→21:00)
[2018-07-05 14:10] VITALS: BP 129/78
[2018-07-05 18:58] VITALS: BP 144/80
[2018-07-05] MEDS: FAMOTIDINE 20 MG/2 ML IVPush SCH (20:36)
[2018-07-05] MEDS: TRAZODONE 100MG TABLET PO SCH (20:36)
[2018-07-05] MEDS: CYCLOBENZAPRINE 10 MG TABLET PO PRN (21:47)
[2018-07-06 01:18] VITALS: BP 144/83
[2018-07-06] MEDS: KETOROLAC 30 MG/1 ML IVPush SCH (04:12)
[2018-07-06] MEDS: HYDROcodone/APAP 10/325 MG TABLET PO PRN ×4 (04:59→20:49)
[2018-07-06 05:02] VITALS: BP 153/85
[2018-07-06] MEDS: ASPIRIN 81 MG TABLET EC PO SCH (05:03)
[2018-07-06] MEDS: METOPROLOL TARTRATE 25 MG TABLET PO SCH ×2 (05:04→17:13)
[2018-07-06 05:57] LABS: CHLORIDE 107 mmol/L (98-107)
[2018-07-06 06:04] LABS: BASOPHILS # (AUTO) 0.02 x10^3/uL (0-0.1); BASOPHILS % (AUTO) 0 % (0-1); EOSINOPHILS # (AUTO) 0.29 x10^3/uL (0-0.4); EOSINOPHILS % (AUTO) 3 % (1-7); LYMPHOCYTES # (AUTO) 1.37 x10^3/uL (1-3.4); LYMPHOCYTES % (AUTO) 16 % (22-44); MD NO; MEAN CORPUSCULAR HEMOGLOBIN 28.6 pg (27.0-34.8); MEAN CORPUSCULAR HGB CONC 33.1 g/dL (32.4-35.8); MEAN CORPUSCULAR VOLUME 86.5 fL (80-100); MEAN PLATELET VOLUME 8.5 fL (7.4-10.4); MONOCYTES # (AUTO) 0.65 x10^3/uL (0.2-0.8); MONOCYTES % (AUTO) 8 % (2-9); NEUTROPHILS % (AUTO) 73 % (42-75); PLATELET COUNT 188 x10^3/uL (130-400); RED BLOOD COUNT 2.92 x10^6/uL (3.82-5.3); RED CELL DISTRIBUTION WIDTH 19.4 % (9.6-15.2)
[2018-07-06 06:05] LABS: ANION GAP 8 mmol/L (5-15); CALCIUM 8.5 mg/dL (8.5-10.1); CREATININE 0.57 mg/dL (0.55-1.02)
[2018-07-06] MEDS: SUCRALFATE 1 GM TABLET PO SCH ×4 (06:13→20:32)
[2018-07-06 07:17] VITALS: BP 171/85
[2018-07-06 08:27] VITALS: BP 156/76
[2018-07-06] MEDS ORDERED: GABAPENTIN 100 MG CAPSULE ONE (08:47)
[2018-07-06] MEDS: DOCUSATE 100 MG CAPSULE PO SCH (09:00)
[2018-07-06] MEDS: SODIUM CHLORIDE FLUSH 10ML SYR IVF SCH ×6 (09:00→20:50)
[2018-07-06] MEDS: GABAPENTIN 100 MG CAPSULE PO SCH ×3 (09:39→20:33)
[2018-07-06] MEDS: CITALOPRAM 20 MG TABLET PO SCH (09:39)
[2018-07-06] MEDS: POTASSIUM CHLORIDE 20 MEQ TAB.ER.PRT PO SCH (09:40)
[2018-07-06] MEDS: CYCLOBENZAPRINE 10 MG TABLET PO PRN ×2 (09:40→20:49)
[2018-07-06] MEDS: CLOPIDOGREL 75 MG TABLET PO SCH (09:40)
[2018-07-06] MEDS: LISINOPRIL 10 MG TABLET PO SCH (09:40)
[2018-07-06] MEDS: ENOXAPARIN 40 MG/0.4 ML SQ SCH (09:41)
[2018-07-06] MEDS: FUROSEMIDE 40 MG/4 ML IV SCH (09:41)
[2018-07-06] MEDS: MUPIROCIN OINT 2%, 22GM NAS SCH ×2 (11:58→20:32)
[2018-07-06 12:12] VITALS: BP 147/82
[2018-07-06] MEDS: OXYcodone IR 5MG TABLET PO PRN (15:01)
[2018-07-06] MEDS: ONDANSETRON 2MG/ML, 2ML IVPush PRN (17:13)
[2018-07-06] MEDS: ACETAMINOPHEN 325 MG TABLET PO PRN (18:47)
[2018-07-06 19:52] VITALS: BP 136/73
[2018-07-06] MEDS: FAMOTIDINE 20 MG/2 ML IVPush SCH (20:32)
[2018-07-06] MEDS: TRAZODONE 100MG TABLET PO SCH (20:32)
[2018-07-07 00:27] VITALS: BP 128/84
[2018-07-07] MEDS: OXYcodone IR 5MG TABLET PO PRN ×2 (00:56→08:26)
[2018-07-07 05:22] VITALS: BP 139/81
[2018-07-07] MEDS: ASPIRIN 81 MG TABLET EC PO SCH (05:23)
[2018-07-07] MEDS: METOPROLOL TARTRATE 25 MG TABLET PO SCH (05:24)
[2018-07-07] MEDS: GABAPENTIN 100 MG CAPSULE PO SCH ×2 (05:24→11:31)
[2018-07-07] MEDS: SUCRALFATE 1 GM TABLET PO SCH ×2 (05:37→11:31)
[2018-07-07] MEDS: ONDANSETRON 2MG/ML, 2ML IVPush PRN (06:01)
[2018-07-07] MEDS: HYDROcodone/APAP 10/325 MG TABLET PO PRN ×2 (06:01→10:14)
[2018-07-07 06:45] LABS: BASOPHILS # (AUTO) 0.03 x10^3/uL (0-0.1); BASOPHILS % (AUTO) 0 % (0-1); EOSINOPHILS # (AUTO) 0.53 x10^3/uL (0-0.4); EOSINOPHILS % (AUTO) 6 % (1-7); LYMPHOCYTES % (AUTO) 20 % (22-44); MD NO; MEAN CORPUSCULAR HEMOGLOBIN 28.5 pg (27.0-34.8); MEAN CORPUSCULAR VOLUME 86.2 fL (80-100); MEAN PLATELET VOLUME 7.9 fL (7.4-10.4); MONOCYTES # (AUTO) 0.83 x10^3/uL (0.2-0.8); MONOCYTES % (AUTO) 9 % (2-9); NEUTROPHILS # (AUTO) 5.65 x10^3/uL (1.8-6.8); NEUTROPHILS % (AUTO) 64 % (42-75); PLATELET COUNT 233 x10^3/uL (130-400); RED BLOOD COUNT 2.94 x10^6/uL (3.82-5.3); RED CELL DISTRIBUTION WIDTH 19.2 % (9.6-15.2)
[2018-07-07 06:56] LABS: ANION GAP 7 mmol/L (5-15); CALCIUM 8.2 mg/dL (8.5-10.1); CHLORIDE 106 mmol/L (98-107); CREATININE 0.55 mg/dL (0.55-1.02)
[2018-07-07 08:08] VITALS: BP 142/87
[2018-07-07] MEDS: MUPIROCIN OINT 2%, 22GM NAS SCH (08:27)
[2018-07-07] MEDS: LISINOPRIL 10 MG TABLET PO SCH (08:28)
[2018-07-07] MEDS: CLOPIDOGREL 75 MG TABLET PO SCH (08:28)
[2018-07-07] MEDS: POTASSIUM CHLORIDE 20 MEQ TAB.ER.PRT PO SCH (08:28)
[2018-07-07] MEDS: CITALOPRAM 20 MG TABLET PO SCH (08:29)
[2018-07-07] MEDS: FUROSEMIDE 40 MG/4 ML IV SCH (08:29)
[2018-07-07] MEDS: ENOXAPARIN 40 MG/0.4 ML SQ SCH (08:30)
[2018-07-07] MEDS: SODIUM CHLORIDE FLUSH 10ML SYR IVF SCH ×3 (08:33→08:34)
[2018-07-07] MEDS ORDERED: DOCUSATE 100 MG CAPSULE PO SCH (09:00)
[2018-07-07] MEDS ORDERED: GABA-826 PO (09:27)
[2018-07-07] MEDS ORDERED: CLOP75TA PO (09:27)
[2018-07-07] MEDS ORDERED: ASPI-621 PO (09:27)
[2018-07-07] MEDS ORDERED: MORP15TA3 PO (09:27)
[2018-07-07] MEDS ORDERED: METO25TA35 PO (09:27)
== END 2018-07-07 15:44 | disposition home health service (06) | DRG 266 ==
LOC: ORIP 04:52 → 5SO 04:59 → CCU 10:16 → 5SO 07-04 13:14
PROVIDERS: ADMIT Thoracic Surgery (Cardiothoracic Vascular Surgery); ATTEND Thoracic Surgery (Cardiothoracic Vascular Surgery)
PROC: 5A1221Z Performance of Cardiac Output, Continuous (ICD-10-PCS; 2018-07-02)
PROC: B24BZZ4 Ultrasonography of Heart with Aorta, Transesophageal (ICD-10-PCS; 2018-07-02)
PROC: 02RF38Z Replacement of Aortic Valve with Zooplastic Tissue, Percutaneous Approach (ICD-10-PCS; principal; 2018-07-02 07:30)
DX: I35.2 Nonrheumatic aortic (valve) stenosis with insufficiency (principal); Z00.6 Encounter for examination for normal comparison and control in clinical research program; I50.33 Acute on chronic diastolic (congestive) heart failure; Z68.42 Body mass index [BMI] 45.0-49.9, adult; E66.01 Morbid (severe) obesity due to excess calories; Z88.2 Allergy status to sulfonamides; E78.5 Hyperlipidemia, unspecified; G89.4 Chronic pain syndrome; I11.0 Hypertensive heart disease with heart failure; R09.02 Hypoxemia; Z82.49 Family history of ischemic heart disease and other diseases of the circulatory system; Z87.11 Personal history of peptic ulcer disease; Z87.891 Personal history of nicotine dependence; Z90.710 Acquired absence of both cervix and uterus; Z90.49 Acquired absence of other specified parts of digestive tract; R06.03 Acute respiratory distress
CPT/HCPCS: 36415; 36600; 71045; 71046; 80048; 80053; 81001; 82040; 82330; 82800; 82803; 82810; 82947; 82962; 83036; 83735; 84132; 84295; 85014; 85018; 85025; 85049; 85347; 85610; 85730; 86850; 86870; 86900; 86902; 86922; 86923; 87081; 88305; 88311; 93005; 93312; 93321; 93325; 93880; 94002; C1768; G0378; J0697; J1644; J1650; J1815; J1885; J1940; J2250; J2405; J2704; J2720; J3010; J3370; J3475; J3480; J3490; P9045; P9047; C1760; J0171; J0360; J2270; J2370; J7050; S0028

== ENCOUNTER → 2018-08-05 | Outpatient (CLI) | payer OTHER ==
[~2018-08-05] MED LIST changes: +CLOP75TA PO; +GABA-826 PO; +METO25TA35 PO; +MORP15TA3 PO
== END | disposition home or self-care (01) ==
LOC: CVU 11:07
PROVIDERS: ATTEND Internal Medicine Cardiovascular Disease
DX: I08.1 Rheumatic disorders of both mitral and tricuspid valves (principal); I11.9 Hypertensive heart disease without heart failure; Z95.2 Presence of prosthetic heart valve
CPT/HCPCS: 93306

== ENCOUNTER 2020-01-04 16:50 | Inpatient (IN) | payer OTHER ==
[~2020-01-04] VITALS: Ht 154.9 cm; Wt 117.0 kg
[~2020-01-04 16:50] MED LIST changes: -ASPI-621 PO; +ASPI81TA45 PO; -HYDR-3307 PO; +HYDR-36 PO; +LISI1TAB19 PO; -LISI1TAB5 PO; +MORP-29 PO; -MORP15TA3 PO; -TIZA4TAB PO; +TIZA4TAB2 PO; -TRAZ-137 PO; +TRAZ-175 PO
[2020-01-04] MEDS: SODIUM CHLORIDE 0.9% 1,000ML IVBOLUS ONE ×2 (18:30→18:43)
--- NOTE | 2020-01-04 18:30 | NUR ---
MULTIPLE ATTEMPTS TO START IV WITHOUT SUCCESS. SUP NOTIFIED.
[2020-01-04] MEDS ORDERED: ONDANSETRON 2MG/ML, 2ML ONE ×4 (18:40→23:36)
[2020-01-04] MEDS ORDERED: MORPHINE SULFATE 4 MG/ML, 1ML ONE ×2 (18:40→19:22)
[2020-01-04] MEDS: ONDANSETRON 2MG/ML, 2ML IVPush ONE ×2 (18:42→19:23)
[2020-01-04] MEDS: MORPHINE SULFATE 4 MG/ML, 1ML IVPush PRN ×3 (18:43→20:28)
[2020-01-04 18:59] LABS: ALBUMIN 3.8 g/dL (3.4-5.0); ANION GAP 8 mmol/L (5-15); CALCIUM 9.3 mg/dL (8.5-10.1); CHLORIDE 90 mmol/L (98-107)
[2020-01-04 19:01] LABS: BASOPHILS # (AUTO) 0.01 x10^3/uL (0-0.1); BASOPHILS % (AUTO) 0 % (0-1); EOSINOPHILS # (AUTO) 0.01 x10^3/uL (0-0.4); EOSINOPHILS % (AUTO) 0 % (1-7); LYMPHOCYTES # (AUTO) 0.85 x10^3/uL (1-3.4); LYMPHOCYTES % (AUTO) 10 % (22-44); MD NO; MEAN CORPUSCULAR HEMOGLOBIN 29.7 pg (27.0-34.8); MEAN CORPUSCULAR HGB CONC 33.3 g/dL (32.4-35.8); MEAN CORPUSCULAR VOLUME 89.2 fL (80-100); MEAN PLATELET VOLUME 8.7 fL (7.4-10.4); MONOCYTES # (AUTO) 0.79 x10^3/uL (0.2-0.8); MONOCYTES % (AUTO) 9 % (2-9); NEUTROPHILS # (AUTO) 7.38 x10^3/uL (1.8-6.8); NEUTROPHILS % (AUTO) 82 % (42-75); PLATELET COUNT 316 x10^3/uL (130-400); RED BLOOD COUNT 4.22 x10^6/uL (3.82-5.3); RED CELL DISTRIBUTION WIDTH 15.3 % (9.6-15.2)
[2020-01-04 19:05] LABS: ALANINE AMINOTRANSFERASE 27 U/L (12-78); ALKALINE PHOSPHATASE 86 U/L (45-117); BILIRUBIN,TOTAL 0.6 mg/dL (0.2-1.0); CREATININE 1.38 mg/dL (0.55-1.02); TOTAL PROTEIN 8.8 g/dL (6.4-8.2); TROPONIN I < 0.015 ng/mL (0.000-0.045)
--- NOTE | 2020-01-04 19:15 | NUR ---
IV START PER NIRMAL MILLAN. MEDICATIONS PER NOV.
--- NOTE | 2020-01-04 19:26 | NUR ---
PT TO CT
[2020-01-04] MEDS ORDERED: OMNIPAQUE 350 MG/ML, 100ML BOTTLE ONE (19:47)
--- NOTE | 2020-01-04 20:00 | NUR ---
PT ASSISTED TO [facility]. PT DROPPED UA SAMPLE IN COMMODE. PROVIDER NOTIFIED FOR STRAIGHT CATH ORDER.
--- NOTE | 2020-01-04 20:10 | NUR ---
PROVIDER STATES OK TO COLLECT UA ON FLOOR.
--- NOTE | 2020-01-04 20:21 | NUR ---
16 FR NG PLACED TO L NOSTRIL AND SECURED. MEDIUM INTERMITTENT SUCTION ON. PT TOLERATED WELL.
[2020-01-04] MEDS ORDERED: HYDROmorphone 1 MG/ML, 1ML INJ ONE (20:23)
[2020-01-04] MEDS ORDERED: SODIUM CHLORIDE 0.9% 1,000 ML IV ONE (20:28)
[2020-01-04] MEDS ORDERED: ONDANSETRON 2MG/ML, 2ML IVPush ONE (20:30)
[2020-01-04] MEDS ORDERED: HYDROmorphone 1 MG/ML, 1ML INJ IV ONE (20:30)
[2020-01-04] MEDS ORDERED: ONDANSETRON 2MG/ML, 2ML IVPush PRN (20:30)
--- NOTE | 2020-01-04 20:48 | NUR ---
RPT CALLED TO OR, RN.
[2020-01-04 20:58] LABS: INTERNATIONAL NORMALIZED RATIO 1.02 (0.93-1.1); PROTHROMBIN TIME 10.8 Seconds (9.6-11.5)
[2020-01-04] MEDS ORDERED: BUPIVACAINE/PF-EPI 0.5% 1:200K ONE (21:02)
[2020-01-04] MEDS ORDERED: FENTANYL PF 250 MCG/5ML ONE ×2 (21:04→22:10)
[2020-01-04] MEDS ORDERED: BUPIVACAINE/PF-EPI 0.5% 1:200K IM ONE (21:15)
[2020-01-04] MEDS ORDERED: CEFOTETAN PMX 2GM/50ML 50 ML ONE (21:24)
[2020-01-04] MEDS ORDERED: MEPERIDINE/PF 25MG/ML,1ML IVPush PRN (21:30)
[2020-01-04] MEDS ORDERED: OXYcodone 5 MG/5 ML ORAL.SOL UDC PO PRN (21:30)
[2020-01-04] MEDS ORDERED: LABETALOL 5MG/ML, 20ML IV PRN (21:30)
[2020-01-04] MEDS ORDERED: FENTANYL PF 100 MCG/2ML IV PRN (21:30)
[2020-01-04] MEDS ORDERED: hydrALAzine 20 MG/ML, 1ML IV PRN (21:30)
[2020-01-04] MEDS ORDERED: PROMETHAZINE 25 MG/ML, 1ML IV PRN (21:30)
[2020-01-04] MEDS ORDERED: HYDROmorphone 2 MG/ML, 1ML IVPush PRN (21:30)
[2020-01-04] MEDS ORDERED: HALOPERIDOL 5 MG/ML IV PRN (21:30)
[2020-01-04] MEDS ORDERED: MORPHINE SULFATE 4 MG/ML, 1ML IVPush PRN (21:30)
[2020-01-04] MEDS ORDERED: METOPROLOL 1 MG/ML, 5ML ONE (21:44)
[2020-01-04] MEDS ORDERED: DEXAMETHASONE 4 MG/ML, 1ML ONE (23:36)
[2020-01-04] MEDS ORDERED: NEOSTIGMINE 1 MG/ML, 10ML ONE (23:36)
[2020-01-04] MEDS ORDERED: SUCCINYLCHOLINE 20 MG/ML, 10ML ONE (23:36)
[2020-01-04] MEDS ORDERED: ROCURONIUM 10MG/ML,5ML ONE (23:36)
[2020-01-04] MEDS ORDERED: GLYCOPYRROLATE 0.2MG/1ML, 5ML ONE (23:36)
[2020-01-04] MEDS ORDERED: PROPOFOL 10 MG/ML, 20ML ONE (23:36)
[2020-01-05] MEDS: HYDROmorphone 1 MG/ML, 1ML INJ IVPush PRN ×2 (00:15→00:30)
[2020-01-05] MEDS ORDERED: HYDROmorphone 1 MG/ML, 1ML INJ ONE (00:15)
[2020-01-05] MEDS ORDERED: ONDANSETRON 2MG/ML, 2ML IVPush PRN (00:30)
[2020-01-05] MEDS ORDERED: LABETALOL 5MG/ML, 20ML IVPush PRN (00:30)
[2020-01-05] MEDS ORDERED: ENALAPRILAT 1.25 MG/ML, 2ML IVPush PRN ×2 (00:30→19:30)
[2020-01-05] MEDS ORDERED: HYDROcodone/APAP 5/325 TABLET PO PRN (00:30)
[2020-01-05] MEDS ORDERED: LACTATED RINGERS 1,000 ML IV SCH (00:30)
[2020-01-05] MEDS: HEPARIN 5,000 UNITS/ML, 1ML SQ SCH ×3 (00:30→16:35)
[2020-01-05] MEDS ORDERED: MEPERIDINE/PF 25MG/ML,1ML ONE (00:37)
[2020-01-05] MEDS: morphine SULFATE 10 MG/ML, 1ML IVPush PRN ×3 (01:11→07:15)
[2020-01-05 03:11] LABS: MICROSCOPIC AUTO
[2020-01-05 03:24] LABS: CULTURE INDICATED? NO
[2020-01-05 03:56] VITALS: BP 135/84
[2020-01-05] MEDS ORDERED: HYDROmorphone 1 MG/ML, 1ML INJ IV ONE (04:30)
[2020-01-05] MEDS ORDERED: PIPERACILLIN/TAZO/PMX 3.375GM 50 ML IV SCH (04:30)
[2020-01-05] MEDS ORDERED: FENTANYL 50 MCG PATCH TD SCH (05:30)
[2020-01-05] MEDS: ASPIRIN 81 MG TABLET EC PO SCH (06:00)
[2020-01-05 06:43] VITALS: BP 136/74
[2020-01-05 06:56] LABS: ALANINE AMINOTRANSFERASE 23 U/L (12-78); ALBUMIN 2.8 g/dL (3.4-5.0); ANION GAP 9 mmol/L (5-15); CALCIUM 8.7 mg/dL (8.5-10.1); CHLORIDE 97 mmol/L (98-107)
[2020-01-05 06:58] LABS: ALKALINE PHOSPHATASE 69 U/L (45-117); TOTAL PROTEIN 7.3 g/dL (6.4-8.2)
[2020-01-05] MEDS: DIPHENHYDRAMINE 50 MG/ML, 1ML IVPush PRN ×2 (08:46→16:31)
[2020-01-05] MEDS: FAMOTIDINE 20 MG/2 ML IVPush SCH ×2 (08:46→20:33)
[2020-01-05] MEDS: CITALOPRAM 20 MG TABLET PO SCH (08:46)
[2020-01-05] MEDS: CHOLECALCIFEROL 1,000 UNIT TABLET PO SCH (08:47)
[2020-01-05 08:51] LABS: MD YES; MEAN CORPUSCULAR HEMOGLOBIN 30.1 pg (27.0-34.8); MEAN CORPUSCULAR HGB CONC 33.4 g/dL (32.4-35.8); MEAN PLATELET VOLUME 8.6 fL (7.4-10.4); PLATELET COUNT 354 x10^3/uL (130-400); RED CELL DISTRIBUTION WIDTH 15.9 % (9.6-15.2)
[2020-01-05 08:56] LABS: LYMPH#(MANUAL) 0.94 x10^3/uL (1-3.4); LYMPHS% (MANUAL) 9 % (22-44); MONOS#(MANUAL) 1.14 x10^3/uL (0.3-2.7); MONOS% (MANUAL) 11 % (2-9)
[2020-01-05 08:57] LABS: BAND#(MANUAL) 4.58 x10^3/uL; BANDS%(MANUAL) 44 % (0-7); SEG#(MANUAL) 3.74 x10^3/uL (1.8-6.8); SEGS% (MANUAL) 36 % (42-75)
[2020-01-05] MEDS ORDERED: CLOPIDOGREL 75 MG TABLET PO SCH (09:00)
[2020-01-05 09:03] LABS: <PLATELET ESTIMATE> ADEQUATE; ANISOCYTOSIS 1+; LARGE PLATELETS 1+
[2020-01-05] MEDS: ONDANSETRON 2MG/ML, 2ML IVPush PRN (10:26)
[2020-01-05] MEDS: HYDROmorphone 2 MG/ML, 1ML IVPush PRN ×6 (10:26→20:33)
[2020-01-05] MEDS ORDERED: POTASSIUM CHLORIDE 40 MEQ in SODIUM CHLORIDE 0.9% 500 ML IV ONE (10:45)
[2020-01-05 12:29] VITALS: BP 128/82
[2020-01-05] MEDS ORDERED: POTASSIUM CHLORIDE 20 MEQ in SODIUM CHLORIDE 0.9% 250 ML IV ONE ×2 (15:00→20:00)
[2020-01-05] MEDS: LACTATED RINGERS 1,000 ML IV SCH (16:31)
[2020-01-05] MEDS ORDERED: BISACODYL 10 MG SUPP PR PRN (17:00)
[2020-01-05] MEDS ORDERED: LACTULOSE 20 GM/30 ML UDC PO PRN (17:00)
[2020-01-05] MEDS: DOCUSATE 50 MG/5 ML, 10ML UDC NG SCH (17:04)
[2020-01-05] MEDS: METOPROLOL TARTRATE 25 MG TAB PO SCH (17:04)
[2020-01-05 17:13] LABS: MEAN CORPUSCULAR HEMOGLOBIN 29.7 pg (27.0-34.8); MEAN CORPUSCULAR HGB CONC 32.7 g/dL (32.4-35.8); MEAN CORPUSCULAR VOLUME 90.7 fL (80-100); MEAN PLATELET VOLUME 8.4 fL (7.4-10.4); PLATELET COUNT 365 x10^3/uL (130-400); RED CELL DISTRIBUTION WIDTH 15.8 % (9.6-15.2)
[2020-01-05 17:22] LABS: ALBUMIN 2.8 g/dL (3.4-5.0); ANION GAP 6 mmol/L (5-15); CALCIUM 8.6 mg/dL (8.5-10.1); CHLORIDE 101 mmol/L (98-107)
[2020-01-05 17:27] LABS: ALANINE AMINOTRANSFERASE 21 U/L (12-78); ALKALINE PHOSPHATASE 67 U/L (45-117); BILIRUBIN,TOTAL 0.6 mg/dL (0.2-1.0); CREATININE 0.76 mg/dL (0.55-1.02); TOTAL PROTEIN 7.3 g/dL (6.4-8.2)
[2020-01-05] MEDS ORDERED: LABETALOL 5MG/ML, 20ML IVPush ONE (17:30)
[2020-01-05 17:37] LABS: MD YES
[2020-01-05 17:40] LABS: BAND#(MANUAL) 3.04 x10^3/uL; BANDS%(MANUAL) 26 % (0-7); LYMPHS% (MANUAL) 6 % (22-44); MONOS#(MANUAL) 1.05 x10^3/uL (0.3-2.7); MONOS% (MANUAL) 9 % (2-9); SEGS% (MANUAL) 59 % (42-75)
[2020-01-05 17:41] LABS: <PLATELET ESTIMATE> ADEQUATE; <PLT MORPHOLOGY> NORMAL PLT MORPH; <RBC MORPHOLOGY> NORMAL
[2020-01-05 17:55] VITALS: BP 142/85
[2020-01-05] MEDS ORDERED: LABETALOL 20 MG/4 ML IVPush PRN (18:00)
[2020-01-05 19:14] VITALS: BP 156/82
[2020-01-05] MEDS ORDERED: SENNA/DOCUSATE TABLET ONE (20:25)
[2020-01-05] MEDS ORDERED: SENNA 176 MG/5 ML ORAL SOL NG SCH (21:00)
[2020-01-05] MEDS: LABETALOL 20 MG/4 ML IVPush PRN (23:07)
[2020-01-06] MEDS ORDERED: LACTATED RINGERS 1,000 ML IV SCH (00:30)
[2020-01-06] MEDS ORDERED: TIZANIDINE 2MG TABLET PO PRN (00:30)
[2020-01-06 00:56] VITALS: BP 151/93
[2020-01-06] MEDS: HEPARIN 5,000 UNITS/ML, 1ML SQ SCH ×3 (00:56→17:00)
[2020-01-06] MEDS: HYDROmorphone 2 MG/ML, 1ML IVPush PRN ×5 (04:29→21:16)
[2020-01-06] MEDS: METOPROLOL TARTRATE 25 MG TAB PO SCH (05:44)
[2020-01-06] MEDS: ASPIRIN 81 MG TABLET EC PO SCH (05:44)
[2020-01-06 05:47] LABS: BASOPHILS # (AUTO) 0.01 x10^3/uL (0-0.1); BASOPHILS % (AUTO) 0 % (0-1); EOSINOPHILS % (AUTO) 0 % (1-7); LYMPHOCYTES # (AUTO) 1.18 x10^3/uL (1-3.4); LYMPHOCYTES % (AUTO) 11 % (22-44); MD NO; MEAN CORPUSCULAR HEMOGLOBIN 29.4 pg (27.0-34.8); MEAN CORPUSCULAR HGB CONC 32.5 g/dL (32.4-35.8); MEAN CORPUSCULAR VOLUME 90.5 fL (80-100); MEAN PLATELET VOLUME 8.6 fL (7.4-10.4); MONOCYTES # (AUTO) 1.21 x10^3/uL (0.2-0.8); MONOCYTES % (AUTO) 12 % (2-9); NEUTROPHILS # (AUTO) 8.11 x10^3/uL (1.8-6.8); NEUTROPHILS % (AUTO) 77 % (42-75); PLATELET COUNT 312 x10^3/uL (130-400); RED BLOOD COUNT 3.81 x10^6/uL (3.82-5.3); RED CELL DISTRIBUTION WIDTH 15.8 % (9.6-15.2)
[2020-01-06 05:56] LABS: CHLORIDE 103 mmol/L (98-107)
[2020-01-06 06:01] LABS: ALANINE AMINOTRANSFERASE 20 U/L (12-78); ALBUMIN 2.6 g/dL (3.4-5.0); ALKALINE PHOSPHATASE 65 U/L (45-117); ANION GAP 4 mmol/L (5-15); BILIRUBIN,TOTAL 0.4 mg/dL (0.2-1.0); CALCIUM 8.8 mg/dL (8.5-10.1); CREATININE 0.59 mg/dL (0.55-1.02)
[2020-01-06] MEDS: LACTATED RINGERS 1,000 ML IV SCH ×2 (06:29→15:53)
[2020-01-06] MEDS ORDERED: LABETALOL 5MG/ML, 20ML IVPush ONE (06:30)
[2020-01-06] MEDS ORDERED: POLYETHYLENE GLYCOL 17 GM PACKET NG PRN (07:30)
[2020-01-06 07:55] VITALS: BP 160/90
[2020-01-06] MEDS: CITALOPRAM 20 MG TABLET PO SCH (09:00)
[2020-01-06] MEDS: DOCUSATE 50 MG/5 ML, 10ML UDC NG SCH (09:00)
[2020-01-06] MEDS: CHOLECALCIFEROL 1,000 UNIT TABLET PO SCH (09:00)
[2020-01-06] MEDS: FAMOTIDINE 20 MG/2 ML IVPush SCH ×2 (09:18→20:31)
[2020-01-06] MEDS ORDERED: FENTANYL 25 MCG PATCH TD SCH (12:30)
[2020-01-06 14:59] VITALS: BP 164/90
[2020-01-06 19:10] VITALS: BP 167/97
[2020-01-06] MEDS ORDERED: METOPROLOL SUCCINATE 25 MG TAB.ER.24H PO SCH ×2 (20:00)
[2020-01-07 00:32] VITALS: BP 157/89
[2020-01-07] MEDS: LACTATED RINGERS 1,000 ML IV SCH (00:33)
[2020-01-07] MEDS: HEPARIN 5,000 UNITS/ML, 1ML SQ SCH ×3 (00:33→17:28)
[2020-01-07] MEDS: HYDROmorphone 2 MG/ML, 1ML IVPush PRN ×2 (01:52→06:51)
[2020-01-07 05:31] LABS: ALBUMIN 2.4 g/dL (3.4-5.0); ANION GAP 5 mmol/L (5-15); CALCIUM 8.5 mg/dL (8.5-10.1); CHLORIDE 104 mmol/L (98-107)
[2020-01-07] MEDS: ONDANSETRON 2MG/ML, 2ML IVPush PRN (05:31)
[2020-01-07 05:32] LABS: BASOPHILS # (AUTO) 0.01 x10^3/uL (0-0.1); BASOPHILS % (AUTO) 0 % (0-1); EOSINOPHILS # (AUTO) 0.02 x10^3/uL (0-0.4); EOSINOPHILS % (AUTO) 0 % (1-7); LYMPHOCYTES % (AUTO) 14 % (22-44); MD NO; MEAN CORPUSCULAR VOLUME 90.8 fL (80-100); MEAN PLATELET VOLUME 8.7 fL (7.4-10.4); MONOCYTES # (AUTO) 0.87 x10^3/uL (0.2-0.8); MONOCYTES % (AUTO) 8 % (2-9); NEUTROPHILS # (AUTO) 8.01 x10^3/uL (1.8-6.8); NEUTROPHILS % (AUTO) 77 % (42-75); PLATELET COUNT 256 x10^3/uL (130-400); RED BLOOD COUNT 3.35 x10^6/uL (3.82-5.3); RED CELL DISTRIBUTION WIDTH 15.7 % (9.6-15.2)
[2020-01-07 05:35] LABS: ALANINE AMINOTRANSFERASE 20 U/L (12-78); ALKALINE PHOSPHATASE 59 U/L (45-117); BILIRUBIN,TOTAL 0.4 mg/dL (0.2-1.0); CREATININE 0.51 mg/dL (0.55-1.02); TOTAL PROTEIN 6.6 g/dL (6.4-8.2)
[2020-01-07 07:00] VITALS: BP 170/90
[2020-01-07] MEDS ORDERED: HYDROcodone/APAP 10/325 MG TABLET PO PRN (08:30)
[2020-01-07] MEDS ORDERED: HYDROCHLOROTHIAZIDE 12.5 MG CAPSULE PO SCH (09:00)
[2020-01-07] MEDS ORDERED: LISINOPRIL 20 MG TABLET PO SCH (09:00)
[2020-01-07] MEDS ORDERED: FUROSEMIDE 20 MG TABLET PO SCH (09:00)
[2020-01-07] MEDS ORDERED: LISINOPRIL 10 MG TABLET PO SCH (09:00)
[2020-01-07] MEDS ORDERED: CHOLECALCIFEROL 1,000 UNIT TABLET PO SCH (09:03)
[2020-01-07] MEDS ORDERED: ASPIRIN 81 MG TABLET EC PO SCH (09:04)
[2020-01-07] MEDS ORDERED: CLOPIDOGREL 75 MG TABLET PO SCH (09:05)
[2020-01-07] MEDS ORDERED: CITALOPRAM 20 MG TABLET PO SCH (09:05)
[2020-01-07] MEDS: FAMOTIDINE 20 MG/2 ML IVPush SCH (09:14)
[2020-01-07 10:27] VITALS: BP 183/102
[2020-01-07] MEDS ORDERED: LABETALOL 5MG/ML, 20ML ONE (10:29)
[2020-01-07] MEDS: LABETALOL 20 MG/4 ML IVPush PRN (10:35)
[2020-01-07] MEDS: GABAPENTIN 100 MG CAPSULE PO SCH ×2 (10:35→17:28)
[2020-01-07 11:44] VITALS: BP 164/84
[2020-01-07 13:10] VITALS: BP 163/83
[2020-01-07] MEDS ORDERED: METO25TA91 PO (13:29)
[2020-01-07 14:07] VITALS: BP 155/87
[2020-01-07] MEDS ORDERED: POTASSIUM CHLORIDE 20 MEQ TAB.ER.PRT PO SCH (17:00)
[2020-01-07] MEDS ORDERED: TRAZODONE 100MG TABLET PO SCH (21:00)
[2020-01-08] MEDS ORDERED: LACTATED RINGERS 1,000 ML IV SCH (00:30)
== END 2020-01-07 18:58 | disposition home health service (06) | DRG 335 ==
LOC: ED 19:19 → EDIP 20:28 → 4NE 01-05 00:54 → 5SO 01-05 17:40
PROVIDERS: ADMIT Family Medicine; ATTEND Family Medicine
PROC: 0WJG4ZZ Inspection of Peritoneal Cavity, Percutaneous Endoscopic Approach (ICD-10-PCS; 2020-01-04)
PROC: 0DN80ZZ Release Small Intestine, Open Approach (ICD-10-PCS; principal; 2020-01-04 22:00)
PROC: 0T9B70Z Drainage of Bladder with Drainage Device, Via Natural or Artificial Opening (ICD-10-PCS; 2020-01-05)
DX: K56.52 Intestinal adhesions [bands] with complete obstruction (principal); J96.91 Respiratory failure, unspecified with hypoxia; N17.9 Acute kidney failure, unspecified; Z68.42 Body mass index [BMI] 45.0-49.9, adult; E87.1 Hypo-osmolality and hyponatremia; F11.20 Opioid dependence, uncomplicated; K56.2 Volvulus; E86.0 Dehydration; E66.01 Morbid (severe) obesity due to excess calories; E87.6 Hypokalemia; I10 Essential (primary) hypertension; F41.9 Anxiety disorder, unspecified; G89.29 Other chronic pain; G25.81 Restless legs syndrome; R00.0 Tachycardia, unspecified; E87.8 Other disorders of electrolyte and fluid balance, not elsewhere classified; Z90.49 Acquired absence of other specified parts of digestive tract; Z88.2 Allergy status to sulfonamides; Z82.49 Family history of ischemic heart disease and other diseases of the circulatory system; Z83.3 Family history of diabetes mellitus; Z82.5 Family history of asthma and other chronic lower respiratory diseases; Z95.2 Presence of prosthetic heart valve
CPT/HCPCS: 36415; 71045; 71275; 74018; 74177; 80053; 81001; 83605; 83690; 83880; 84484; 85025; 85610; 87040; 93005; 93306; 96374; 96375; 96376; G0378; J1100; J1170; J1644; J2405; J2543; J2550; J2704; J2710; J3010; J3480; Q9967; J0330; J1200; J2175; J2270; J3490; J7030; J7040; J7050; J7120

== ENCOUNTER 2020-01-14 10:25 | Inpatient (IN) | payer OTHER ==
[~2020-01-14] VITALS: Ht 154.9 cm; Wt 111.2 kg
[~2020-01-14 10:25] MED LIST changes: +METO25TA91 PO
--- NOTE | 2020-01-14 10:46 | NUR ---
PATIENT ARRIVES TO ER WITH HENRY WITH A FOUR DIAY HISTORY OF NAUSEA, VOMITING, ABDOMINAL PAIN. PATIENT HAS STUART IN PLACE FOR SURGICAL SITE THAT IS FROM UMBILICUS DISTAL DOWN MIDLINE OF ABDOMEN THAT ARE CLEAN DRY AND INTACT/NO REDDNESS/NO DRAINAGE. PATIENT STATES SHE HAS SURGERY LAST FRIDAY WITH DR SCHUMACHER FOR WHAT SHE REPORTS "THEY REMOVED SOME OF MY INTESTINES". NO OSTOMY. PATIENT HAS BEEN STOOLING SINCE. SHE ACTIVELY THROWING UP GREEN BILE.
[2020-01-14] MEDS ORDERED: METOCLOPRAMIDE 5 MG/ML, 2ML ONE (10:57)
[2020-01-14] MEDS ORDERED: SODIUM CHLORIDE 0.9% 1,000ML IVBOLUS ONE (11:00)
[2020-01-14] MEDS ORDERED: METOCLOPRAMIDE 5 MG/ML, 2ML IVPush ONE (11:00)
--- NOTE | 2020-01-14 11:02 | NUR ---
ORAL CONTRAST ARRIVED, GOT PATIENT UP TO BATHROOM DID WELL ON FEET; PATIENT GOT IN BED AND STARTED ON ORAL CONTRAST; MEDICATED
[2020-01-14 11:13] LABS: BASOPHILS % (AUTO) 0 % (0-1); EOSINOPHILS # (AUTO) 0.12 x10^3/uL (0-0.4); EOSINOPHILS % (AUTO) 1 % (1-7); LYMPHOCYTES # (AUTO) 0.82 x10^3/uL (1-3.4); LYMPHOCYTES % (AUTO) 5 % (22-44); MD NO; MEAN CORPUSCULAR HEMOGLOBIN 30.3 pg (27.0-34.8); MEAN CORPUSCULAR HGB CONC 33.6 g/dL (32.4-35.8); MEAN CORPUSCULAR VOLUME 90.2 fL (80-100); MEAN PLATELET VOLUME 7.8 fL (7.4-10.4); MONOCYTES # (AUTO) 0.58 x10^3/uL (0.2-0.8); MONOCYTES % (AUTO) 4 % (2-9); NEUTROPHILS # (AUTO) 14.59 x10^3/uL (1.8-6.8); NEUTROPHILS % (AUTO) 91 % (42-75); PLATELET COUNT 376 x10^3/uL (130-400); RED BLOOD COUNT 3.73 x10^6/uL (3.82-5.3); RED CELL DISTRIBUTION WIDTH 16.3 % (9.6-15.2)
[2020-01-14 11:17] LABS: ALANINE AMINOTRANSFERASE 41 U/L (12-78); ANION GAP 10 mmol/L (5-15); CALCIUM 8.6 mg/dL (8.5-10.1); CHLORIDE 98 mmol/L (98-107); CREATININE 0.73 mg/dL (0.55-1.02)
[2020-01-14 11:19] LABS: ALKALINE PHOSPHATASE 147 U/L (45-117); BILIRUBIN,TOTAL 0.4 mg/dL (0.2-1.0); TOTAL PROTEIN 7.7 g/dL (6.4-8.2)
--- NOTE | 2020-01-14 11:23 | NUR ---
patient continuous vomiting.
[2020-01-14] MEDS ORDERED: MORPHINE SULFATE 4 MG/ML, 1ML IVPush ONE ×2 (11:30→12:30)
[2020-01-14] MEDS ORDERED: MORPHINE SULFATE 4 MG/ML, 1ML ONE ×3 (11:37→16:33)
[2020-01-14] MEDS ORDERED: ONDANSETRON 2MG/ML, 2ML ONE (11:37)
--- NOTE | 2020-01-14 11:43 | NUR ---
CONTINUES TO HAVE NAUSEA, VOMITING. WANTING PAIN MEDS. NOT TAKING CONTRAST.
--- NOTE | 2020-01-14 11:46 | NUR ---
talked with md and zofran 8mg and morphine ordered and given, will continue to monitor and encourage oral contrast
[2020-01-14] MEDS ORDERED: ONDANSETRON 2MG/ML, 2ML IVPush ONE (12:00)
[2020-01-14] MEDS ORDERED: DIPHENHYDRAMINE 50 MG/ML, 1ML IVPush ONE (12:30)
[2020-01-14] MEDS ORDERED: PROMETHAZINE 25 MG/ML, 1ML IM ONE (12:30)
[2020-01-14] MEDS ORDERED: DIPHENHYDRAMINE 50 MG/ML, 1ML ONE (12:34)
[2020-01-14] MEDS ORDERED: PROMETHAZINE 25 MG/ML, 1ML ONE (12:34)
--- NOTE | 2020-01-14 13:23 | NUR ---
still throwing up. gave chester prado reglan. will alert
[2020-01-14] MEDS ORDERED: OMNIPAQUE 350 MG/ML, 100ML BOTTLE ONE (14:11)
--- NOTE | 2020-01-14 14:12 | NUR ---
PATIENT RETURNED FROM CT SCAN. AWAITING RESULTS. STILL VOMITING
[2020-01-14] MEDS ORDERED: SODIUM CHLORIDE 0.9% 1,000 ML IV SCH (15:03)
--- NOTE | 2020-01-14 15:29 | NUR ---
INSERTED 16 FR NG TUBE AND 450 GREEN BILE OUT IMMIDIATELY. PATIENT STATES FEELS IMPROVED. [facility] HERE TO ASSESS PATIENT
[2020-01-14] MEDS ORDERED: ONDANSETRON 2MG/ML, 2ML IVPush PRN (15:30)
[2020-01-14] MEDS ORDERED: DIPHENHYDRAMINE 50 MG/ML, 1ML IV PRN (15:30)
[2020-01-14] MEDS ORDERED: ACETAMINOPHEN 325 MG TABLET PO PRN (15:30)
[2020-01-14] MEDS ORDERED: METOCLOPRAMIDE 5 MG/ML, 2ML IVPush PRN (15:30)
--- NOTE | 2020-01-14 15:30 | NUR ---
REPORT TO NIRMAL HATCH
--- NOTE | 2020-01-14 15:35 | NUR ---
REPORT RECEIVED FROM NIRMAL JALLOH. ASSUMED CARE
[2020-01-14] MEDS: morphine SULFATE 10 MG/ML, 1ML IVPush PRN ×2 (16:35→20:38)
--- NOTE | 2020-01-14 16:37 | NUR ---
PT CO OF PAIN. SEE MAR FOR INTERVENTIONS
[2020-01-14] MEDS ORDERED: SCOPOLAMINE 1MG PATCH TD ONE (18:00)
[2020-01-14] MEDS ORDERED: ENOXAPARIN 40 MG/0.4 ML SQ SCH (18:00)
[2020-01-14 18:04] VITALS: BP 175/83
[2020-01-14] MEDS: LACTATED RINGERS 1,000 ML IV SCH ×2 (18:13→23:41)
[2020-01-14] MEDS: HYDROmorphone 1 MG/ML, 1ML INJ IV PRN ×2 (19:15→23:37)
[2020-01-14 20:36] VITALS: BP 183/99
[2020-01-14] MEDS: ENALAPRILAT 1.25 MG/ML, 2ML IVPush PRN (20:38)
[2020-01-14 23:44] VITALS: BP 179/79
[2020-01-14] MEDS: LABETALOL 5MG/ML, 20ML IVPush PRN (23:48)
[2020-01-15 01:14] VITALS: BP 180/90
[2020-01-15] MEDS: ENALAPRILAT 1.25 MG/ML, 2ML IVPush PRN (01:54)
[2020-01-15] MEDS: morphine SULFATE 10 MG/ML, 1ML IVPush PRN ×3 (01:54→11:21)
[2020-01-15 04:20] VITALS: BP 187/108
[2020-01-15] MEDS: HYDROmorphone 1 MG/ML, 1ML INJ IV PRN ×3 (04:21→13:40)
[2020-01-15] MEDS: LABETALOL 5MG/ML, 20ML IVPush PRN (04:26)
[2020-01-15 05:12] LABS: BASOPHILS # (AUTO) 0.01 x10^3/uL (0-0.1); BASOPHILS % (AUTO) 0 % (0-1); EOSINOPHILS # (AUTO) 0.12 x10^3/uL (0-0.4); EOSINOPHILS % (AUTO) 1 % (1-7); LYMPHOCYTES # (AUTO) 1.42 x10^3/uL (1-3.4); LYMPHOCYTES % (AUTO) 11 % (22-44); MD NO; MEAN CORPUSCULAR HEMOGLOBIN 29.9 pg (27.0-34.8); MEAN CORPUSCULAR HGB CONC 33.2 g/dL (32.4-35.8); MEAN CORPUSCULAR VOLUME 90.1 fL (80-100); MONOCYTES % (AUTO) 6 % (2-9); NEUTROPHILS % (AUTO) 83 % (42-75); PLATELET COUNT 362 x10^3/uL (130-400); RED BLOOD COUNT 3.43 x10^6/uL (3.82-5.3); RED CELL DISTRIBUTION WIDTH 16.2 % (9.6-15.2)
[2020-01-15 05:22] LABS: ANION GAP 10 mmol/L (5-15); CALCIUM 8.6 mg/dL (8.5-10.1); CHLORIDE 100 mmol/L (98-107); CREATININE 0.57 mg/dL (0.55-1.02)
[2020-01-15] MEDS ORDERED: POTASSIUM CHLORIDE 40 MEQ in SODIUM CHLORIDE 0.9% 500 ML IV ONE (06:30)
[2020-01-15] MEDS: PANTOPRAZOLE 40 MG IV IVPush SCH (06:33)
[2020-01-15] MEDS: LACTATED RINGERS 1,000 ML IV SCH ×2 (06:34→16:09)
[2020-01-15 06:49] VITALS: BP 174/94
[2020-01-15] MEDS ORDERED: ENALAPRILAT 1.25 MG/ML, 2ML IVPush PRN (07:30)
[2020-01-15] MEDS ORDERED: LABETALOL 5MG/ML, 20ML IVPush PRN (07:30)
[2020-01-15 13:55] VITALS: BP 174/96
[2020-01-15] MEDS: ENOXAPARIN 30 MG/0.3 ML SQ SCH ×2 (14:27→22:22)
[2020-01-15] MEDS: hydrALAzine 20 MG/ML, 1ML IV PRN (14:32)
[2020-01-15] MEDS ORDERED: MORPHINE SULFATE 4 MG/ML, 1ML IVPush PRN (15:30)
[2020-01-15] MEDS ORDERED: morphine SULFATE 10 MG/ML, 1ML IVPush PRN (15:30)
[2020-01-15] MEDS: GABAPENTIN 100 MG CAPSULE PO SCH ×2 (16:06→20:06)
[2020-01-15] MEDS: HYDROcodone/APAP 10/325 MG TABLET PO PRN (17:56)
[2020-01-15 18:36] VITALS: BP 163/74
[2020-01-15] MEDS ORDERED: HYDROmorphone 1 MG/ML, 1ML INJ IV PRN (20:00)
[2020-01-15] MEDS: HYDROCHLOROTHIAZIDE 12.5 MG CAPSULE PO SCH (20:06)
[2020-01-15] MEDS: METOPROLOL SUCCINATE 25 MG TAB.ER.24H PO SCH (20:06)
[2020-01-15] MEDS: LISINOPRIL 20 MG TABLET PO SCH (20:06)
[2020-01-15] MEDS: METOCLOPRAMIDE 5 MG/ML, 2ML IVPush PRN (22:26)
[2020-01-16 00:37] VITALS: BP 164/78
[2020-01-16] MEDS: HYDROcodone/APAP 10/325 MG TABLET PO PRN ×3 (00:59→18:14)
[2020-01-16 05:18] LABS: BASOPHILS # (AUTO) 0.01 x10^3/uL (0-0.1); BASOPHILS % (AUTO) 0 % (0-1); EOSINOPHILS % (AUTO) 1 % (1-7); LYMPHOCYTES # (AUTO) 1.79 x10^3/uL (1-3.4); LYMPHOCYTES % (AUTO) 13 % (22-44); MD NO; MEAN CORPUSCULAR HEMOGLOBIN 29.7 pg (27.0-34.8); MEAN CORPUSCULAR HGB CONC 32.8 g/dL (32.4-35.8); MEAN CORPUSCULAR VOLUME 90.6 fL (80-100); MONOCYTES # (AUTO) 0.94 x10^3/uL (0.2-0.8); MONOCYTES % (AUTO) 7 % (2-9); NEUTROPHILS % (AUTO) 80 % (42-75); PLATELET COUNT 336 x10^3/uL (130-400); RED BLOOD COUNT 3.29 x10^6/uL (3.82-5.3); RED CELL DISTRIBUTION WIDTH 16.3 % (9.6-15.2)
[2020-01-16 05:30] LABS: CHLORIDE 99 mmol/L (98-107)
[2020-01-16 05:39] LABS: ALANINE AMINOTRANSFERASE 24 U/L (12-78); ALBUMIN 2.7 g/dL (3.4-5.0); ALKALINE PHOSPHATASE 93 U/L (45-117); ANION GAP 8 mmol/L (5-15); BILIRUBIN,TOTAL 0.5 mg/dL (0.2-1.0); CALCIUM 8.5 mg/dL (8.5-10.1); CREATININE 0.52 mg/dL (0.55-1.02); TOTAL PROTEIN 6.9 g/dL (6.4-8.2)
[2020-01-16] MEDS: ASPIRIN 81 MG TABLET EC PO SCH (06:06)
[2020-01-16] MEDS: GABAPENTIN 100 MG CAPSULE PO SCH ×4 (06:06→19:30)
[2020-01-16] MEDS: PANTOPRAZOLE 40 MG IV IVPush SCH (06:06)
[2020-01-16] MEDS ORDERED: POTASSIUM CHLORIDE 40 MEQ in SODIUM CHLORIDE 0.9% 500 ML IV ONE (06:30)
[2020-01-16 06:42] VITALS: BP 174/89
[2020-01-16] MEDS: METOCLOPRAMIDE 5 MG/ML, 2ML IVPush PRN ×2 (08:03→19:30)
[2020-01-16] MEDS: CITALOPRAM 20 MG TABLET PO SCH (08:04)
[2020-01-16] MEDS: FUROSEMIDE 20 MG TABLET PO SCH (08:04)
[2020-01-16] MEDS: LISINOPRIL 20 MG TABLET PO SCH ×2 (08:04→19:30)
[2020-01-16] MEDS: HYDROCHLOROTHIAZIDE 12.5 MG CAPSULE PO SCH ×2 (08:04→19:30)
[2020-01-16] MEDS: CHOLECALCIFEROL 1,000 UNIT TABLET PO SCH (08:04)
[2020-01-16] MEDS: ENOXAPARIN 30 MG/0.3 ML SQ SCH (11:38)
[2020-01-16] MEDS: LACTATED RINGERS 1,000 ML IV SCH (11:40)
[2020-01-16 12:04] VITALS: BP 182/84
[2020-01-16] MEDS: hydrALAzine 20 MG/ML, 1ML IV PRN (12:17)
[2020-01-16 12:45] VITALS: BP 172/97
[2020-01-16] MEDS ORDERED: METOCLOPRAMIDE 10MG TABLET PO PRN (13:30)
[2020-01-16 19:20] VITALS: BP 185/97
[2020-01-16] MEDS: METOPROLOL SUCCINATE 25 MG TAB.ER.24H PO SCH (19:32)
[2020-01-17] MEDS: HYDROcodone/APAP 10/325 MG TABLET PO PRN ×3 (00:03→15:48)
[2020-01-17] MEDS: ENOXAPARIN 30 MG/0.3 ML SQ SCH ×2 (00:03→10:40)
[2020-01-17 00:09] VITALS: BP 141/68
[2020-01-17] MEDS: METOCLOPRAMIDE 5 MG/ML, 2ML IVPush PRN ×2 (04:54→10:39)
[2020-01-17] MEDS: ASPIRIN 81 MG TABLET EC PO SCH (04:54)
[2020-01-17] MEDS: GABAPENTIN 100 MG CAPSULE PO SCH ×3 (04:54→15:36)
[2020-01-17 05:48] LABS: ANION GAP 5 mmol/L (5-15); CALCIUM 8.3 mg/dL (8.5-10.1); CHLORIDE 100 mmol/L (98-107)
[2020-01-17 05:50] LABS: CREATININE 0.58 mg/dL (0.55-1.02)
[2020-01-17 05:55] LABS: BASOPHILS # (AUTO) 0.03 x10^3/uL (0-0.1); BASOPHILS % (AUTO) 0 % (0-1); EOSINOPHILS # (AUTO) 0.33 x10^3/uL (0-0.4); EOSINOPHILS % (AUTO) 3 % (1-7); LYMPHOCYTES # (AUTO) 2.22 x10^3/uL (1-3.4); LYMPHOCYTES % (AUTO) 21 % (22-44); MD NO; MEAN CORPUSCULAR HEMOGLOBIN 29.6 pg (27.0-34.8); MEAN CORPUSCULAR VOLUME 89.7 fL (80-100); MEAN PLATELET VOLUME 8.1 fL (7.4-10.4); MONOCYTES % (AUTO) 8 % (2-9); NEUTROPHILS # (AUTO) 7.08 x10^3/uL (1.8-6.8); NEUTROPHILS % (AUTO) 68 % (42-75); PLATELET COUNT 370 x10^3/uL (130-400); RED BLOOD COUNT 3.57 x10^6/uL (3.82-5.3)
[2020-01-17] MEDS ORDERED: PANTOPRAZOLE 40MG TABLET PO SCH (06:00)
[2020-01-17] MEDS ORDERED: POTASSIUM CHLORIDE 20 MEQ TAB.ER.PRT PO ONE (07:30)
[2020-01-17] MEDS: HYDROCHLOROTHIAZIDE 12.5 MG CAPSULE PO SCH (08:07)
[2020-01-17] MEDS: FUROSEMIDE 20 MG TABLET PO SCH (08:07)
[2020-01-17] MEDS: CHOLECALCIFEROL 1,000 UNIT TABLET PO SCH (08:07)
[2020-01-17] MEDS: LISINOPRIL 20 MG TABLET PO SCH (08:07)
[2020-01-17] MEDS: CITALOPRAM 20 MG TABLET PO SCH (08:07)
[2020-01-17 08:39] VITALS: BP 168/89
[2020-01-17 10:43] VITALS: BP 161/79
[2020-01-17 13:17] VITALS: BP 174/85
[2020-01-17] MEDS ORDERED: METOPROLOL SUCCINATE 25 MG TAB.ER.24H PO ONE (14:30)
[2020-01-17] MEDS ORDERED: METO10TA2 PO (14:47)
[2020-01-17] MEDS ORDERED: POTA20PA25 PO (14:47)
[2020-01-17 16:16] VITALS: BP 166/72
[2020-01-17] MEDS ORDERED: METOPROLOL SUCCINATE 50 MG TAB.ER.24H PO SCH (20:00)
[2020-01-18] MEDS ORDERED: POTASSIUM CHLORIDE 20 MEQ PACKET PO SCH (08:00)
== END 2020-01-17 17:20 | disposition home or self-care (01) | DRG 388 ==
LOC: ED 10:34 → EDIP 15:03 → 4EST 17:21
PROVIDERS: ADMIT Family Medicine; ATTEND Family Medicine
PROC: 0D9780Z Drainage of Stomach, Pylorus with Drainage Device, Via Natural or Artificial Opening Endoscopic (ICD-10-PCS; principal; 2020-01-14)
DX: K56.609 Unspecified intestinal obstruction, unspecified as to partial versus complete obstruction (principal); J96.21 Acute and chronic respiratory failure with hypoxia; Z68.42 Body mass index [BMI] 45.0-49.9, adult; R10.9 Unspecified abdominal pain; D72.829 Elevated white blood cell count, unspecified; E87.6 Hypokalemia; F41.9 Anxiety disorder, unspecified; G89.29 Other chronic pain; I35.0 Nonrheumatic aortic (valve) stenosis; Z79.891 Long term (current) use of opiate analgesic; Z88.2 Allergy status to sulfonamides; Z82.49 Family history of ischemic heart disease and other diseases of the circulatory system; Z82.5 Family history of asthma and other chronic lower respiratory diseases; Z83.3 Family history of diabetes mellitus; K43.9 Ventral hernia without obstruction or gangrene; E66.9 Obesity, unspecified; I10 Essential (primary) hypertension; M54.9 Dorsalgia, unspecified; E11.9 Type 2 diabetes mellitus without complications; Z83.6 Family history of other diseases of the respiratory system
CPT/HCPCS: 36415; 74177; 74250; 80048; 80053; 83690; 83735; 85025; 93005; 96374; 96375; G0378; J1170; J1650; J2405; J3480; Q9967; C9113; J0360; J1200; J2270; J2765; J7030; J7040; J7120